=== PATIENT | male | born 1960 | race African-American/Black ===

== ENCOUNTER 2018-10-31 10:03 | Inpatient (IN) | payer OTHER ==
[2018-10-31 11:14] VITALS: BMI 25.7
--- NOTE | 2018-10-31 12:11 | HP ---
CIWA Score Nausea/Vomitin Muscle Tremors: 2 Anxiety: 3 Agitation: 3 Paroxysmal Sweats: No Perspiration Orientation: 0-Oriented Tacttile Disturbances: 1-Very Mild Itch/Numbness Auditory Disturbances: 0-None Visual Disturbances: 1-Very Mild Sensitivity Headache: 2-Mild CIWA-Ar Total Score: 14 - Admission Criteria OASAS Guidelines: Admission for Medically Managed Detox: Requires at least one of the followin. CIWA greater than 12 2. Seizures within the past 24 hours 3. Delirium tremens within the past 24 hours 4. Hallucinations within the past 24 hours 5. Acute intervention needed for co occurring medical disorder 6. Acute intervention needed for co occurring psychiatric disorder 7. Severe withdrawal that cannot be handled at a lower level of care (continued vomiting, continued diarrhea, abnormal vital signs) requiring intravenous medication and/or fluids 8. Admission ROS S - HPI Chief Complaint: i need help to stop drinking alcohol Allergies/Adverse Reactions: Allergies Allergy/AdvReac Type Severity Reaction Status Date / Time peanut [Peanut] Allergy Severe Difficulty Verified 10/31/18 10:55 Breathing No Known Drug Allergies Allergy Verified 10/31/18 13:22 NKDA Allergy Uncoded 10/31/18 10:55 History of Present Illness: This 57 years old male with alcohol dependence,seeking detox,last detox to 10/15/15 not completed denied seizure denied syncope nicotine dependence 2 cigarette/day low back pain,herniated disc anemia,bleeding requiring transfusion lap surgery for hiatus hernia 03/12 copd fx of right fibula 2005 plan for out patient program after detox Exam Limitations: No Limitations - Ebola screening Have you traveled outside of the country in the last 21 days: No (N) Have you had contact with anyone from an Ebola affected area: No Do you have a fever: No - Review of Systems Constitutional: Loss of Appetite, Malaise, Night Sweats, Changes in sleep, Weakness EENT: reports: Tearing, Nose Congestion Respiratory: reports: No Symptoms reported, Other (copd) Cardiac: reports: No Symptoms Reported GI: reports: Nausea, Poor Appetite, Abdominal cramping : reports: No Symptoms Reported Musculoskeletal: reports: Back Pain, Muscle Pain Integumentary: reports: Dryness Neuro: reports: Tremors Endocrine: reports: No Symptoms Reported Hematology: reports: No Symptoms Reported Psychiatric: reports: No Sypmtoms Reported, Judgement Intact, Mood/Affect Appropiate, Orientated x3 Other Systems: Reviewed and Negative Patient History - Patient Medical History Hx Anemia: No Hx Asthma: No Hx Chronic Obstructive Pulmonary Disease (COPD): Yes (on albuterol,symbicort, singulair) Hx Cancer: No Hx Cardiac Disorders: No Hx Congestive Heart Failure: No Hx Hypertension: No Hx Hypercholesterolemia: No Hx Pacemaker: No HX Cerebrovascular Accident: No Hx Seizures: No Hx Dementia: No Hx Diabetes: No Hx Gastrointestinal Disorders: No Hx Liver Disease: No Hx Genitourinary Disorders: No Hx Sexually Transmitted Disorders: No Hx Renal Disease (ESRD): No Hx Thyroid Disease: No Hx Human Immunodeficiency Virus (HIV): No (last 10/10) Hx Hepatitis C: No Hx Depression: No Hx Suicide Attempt: No Hx Bipolar Disorder: No Hx Schizophrenia: No Other Medical History: no suicidal,no homicidal - Patient Surgical History Past Surgical History: No Hx Neurologic Surgery: No Hx Cataract Extraction: No Hx Cardiac Surgery: No Hx Lung Surgery: No Hx Breast Surgery: No Hx Breast Biopsy: No Hx Abdominal Surgery: Yes (lap surgery for hiatus hernia in 03/12) Hx Appendectomy: No Hx Cholecystectomy: No Hx Genitourinary Surgery: No Hx Section: No Hx Orthopedic Surgery: No Anesthesia Reaction: No - PPD History Previous Implant?: Yes Documented Results: Negative w/o proof Date: 01/02/15 Results: 0 mm PPD to be Administered?: No - Smoking Cessation Smoking history: Former smoker Have you smoked in the past 12 months: Yes Aproximately how many cigarettes per day: 2 Hx Chewing Tobacco Use: No Initiated information on smoking cessation: Yes 'Breaking Loose' booklet given: 10/31/18 - Substance & Tx. History Hx Alcohol Use: Yes Hx Substance Use: No Substance Use Type: Alcohol Hx Substance Use Treatment: Yes ([facility] 10/13/15 to 10/15/15 not completed) - Substances abused Alcohol Substance route: Oral Frequency: Daily Amount used: 1 1/2 pint of bert Age of first use: 18 Date of last use: 10/31/18 Family Disease History - Family Disease History Family Disease History: Diabetes: Father, CA: Mother (UTERUS) Admission Physical Exam [facility]HS - Vital Signs Vital Signs: Vital Signs - 24 hr 10/31/18 10:54 Temperature 97.3 F L Pulse Rate 68 Respiratory 18 Rate Blood Pressure 134/84 - Physical General Appearance: Yes: Moderate Distress, Tremorous, Irritable, Sweating, Anxious HEENTM: Yes: Normal ENT Inspection, RENEE, Pharynx Normal Respiratory: Yes: Lungs Clear, Normal Breath Sounds, No Respiratory Distress Neck: Yes: Within Normal Limits, Supple, Trachea in good position Breast: Yes: Within Normal Limits Cardiology: Yes: Within Normal Limits, Regular Rhythm, Regular Rate, S1, S2 Abdominal: Yes: Within Normal Limits, Normal Bowel Sounds, Non Tender, Soft Genitourinary: Yes: Within Normal Limits Back: Yes: Within Normal Limits Musculoskeletal: Yes: Back pain, Muscle Pain Extremities: Yes: Within Normal Limits, Normal Range of Motion, Tremors Neurological: Yes: short story writer II-XII NML intact, Fully Oriented, Alert, Motor Strength 5/5 Integumentary: Yes: Dry Lymphatic: Yes: Within Normal Limits - Diagnostic (1) Alcohol dependence with uncomplicated withdrawal Current Visit: No Status: Acute (2) Nicotine dependence Current Visit: No Status: Acute (3) GERD (gastroesophageal reflux disease) Current Visit: No Status: Chronic Qualifiers: Esophagitis presence: without esophagitis Qualified Code(s): K21.9 - Gastro -esophageal reflux disease without esophagitis (4) COPD (chronic obstructive pulmonary disease) Current Visit: Yes Status: Acute (5) Anemia Current Visit: Yes Status: Acute Cleared for Admission S - Detox or Rehab [facility] Level of Care: Medically Managed (ativan regimen) Inpatient Rehab Admission - Rehab Decision to Admit Inpatient rehab admission?: No
[2018-10-31] MEDS ORDERED: hydrOXYzine PAMOATE 25 MG CAPSULE (FP) PO PRN (12:33)
[2018-10-31] MEDS ORDERED: ACETAMINOPHEN 325 MG TABLET (FP) PO PRN ×2 (12:33)
[2018-10-31] MEDS ORDERED: IBUPROFEN 400 MG TABLET (FP) PO PRN (12:33)
[2018-10-31] MEDS ORDERED: MELATONIN 5 MG TABLETS PO PRN (12:33)
[2018-10-31] MEDS ORDERED: MENTHOL/PHENOL 1 EACH UD MM PRN (12:33)
[2018-10-31] MEDS ORDERED: LORazepam 1 MG TABLET PO PRN (12:33)
[2018-10-31] MEDS ORDERED: MAGNESIUM HYDROX 2400MG/30ML ORAL SUSPENSION 30 ML CUP PO PRN (12:33)
[2018-10-31] MEDS ORDERED: MAGNESIUM CITRATE 300 ML BOTTLE PO PRN (12:33)
[2018-10-31] MEDS ORDERED: MAG HYDROX/AL HYDROX/SIMETH 30 ML UNIT-DOSE CUP PO PRN (12:33)
[2018-10-31] MEDS ORDERED: BISMUTH SUBSALICYLATE 262 MG/15 ML BTL PO PRN (12:33)
[2018-10-31] MEDS ORDERED: ALBUTEROL SO4 8 GM HFA INHALER IH PRN (12:38)
[2018-10-31] MEDS ORDERED: LORazepam 2 MG TABLET PO ONE (13:30)
[2018-10-31] MEDS: NAPROXEN 500 MG TABLET (FP) PO PRN ×2 (15:48→22:07)
[2018-10-31 16:56] LABS: HEMATOCRIT 38.4 % (35.4-49); HEMOGLOBIN 11.9 GM/dL (11.7-16.9); MCH 25.5 pg (25.7-33.7); MEAN CELL VOLUME 82.1 fl (80-96); MEAN PLT VOLUME 9.6 fl (7.5-11.1); PLATELET COUNT 305 K/MM3 (134-434); RBC 4.68 M/mm3 (4.00-5.60); RDW 15.6 % (11.9-15.9); WHITE BLOOD COUNT 8.3 K/mm3 (4.0-10.0)
[2018-10-31 17:06] LABS: ALBUMIN 3.7 g/dl (3.4-5.0); BILIRUBIN,TOTAL 0.4 mg/dL (0.2-1); BLOOD UREA NITROGEN 22.9 mg/dL (7-18); CALCIUM 8.9 mg/dL (8.5-10.1); POTASSIUM 4.1 mmol/L (3.5-5.1); TOT PROT 6.9 g/dl (6.4-8.2)
[2018-10-31] MEDS: LORazepam 2 MG TABLET PO SCH ×2 (17:57→22:05)
[2018-10-31] MEDS: VITAMINS A AND D TOPICAL OINTMENT 60 GM TUBE TP SCH ×2 (17:59→23:02)
[2018-10-31] MEDS ORDERED: diphenhydrAMINE HCL 25 MG CAPSULE (FP) PO ONE (21:20)
[2018-10-31] MEDS: BUDESONIDE/FORMETEROL FUMARATE 160/4.5 mcg INHALER IH SCH (22:05)
[2018-10-31] MEDS: MONTELUKAST NA 10 MG TABLET PO SCH (22:05)
[2018-10-31] MEDS: THIAMINE HCL 100 MG TABLET (FP) PO SCH (22:06)
[2018-10-31] MEDS: diphenhydrAMINE HCL 50 MG CAPSULE PO SCH (22:07)
[2018-11-01] MEDS: LORazepam 2 MG TABLET PO SCH ×4 (05:55→22:02)
[2018-11-01] MEDS: NAPROXEN 500 MG TABLET (FP) PO PRN ×3 (05:57→16:39)
[2018-11-01] MEDS: VITAMINS A AND D TOPICAL OINTMENT 60 GM TUBE TP SCH ×3 (07:20→18:35)
[2018-11-01] MEDS: GABAPENTIN 300 MG CAPSULE (FP) PO SCH (10:27)
[2018-11-01] MEDS: PRENATAL VITAMINS W/ FOLIC ACID TABLET (FP) PO SCH (10:27)
[2018-11-01] MEDS: BUDESONIDE/FORMETEROL FUMARATE 160/4.5 mcg INHALER IH SCH ×2 (10:28→22:04)
--- NOTE | 2018-11-01 10:35 | PN ---
[facility] CIWA - CIWA Score Nausea/Vomitin-No Nausea/No Vomiting Muscle Tremors: 3 Anxiety: 2 Agitation: 4-Moderately Restless Paroxysmal Sweats: 2 Orientation: 0-Oriented Tacttile Disturbances: 0-None Auditory Disturbances: 0-None Visual Disturbances: 0-None Headache: 0-None Present CIWA-Ar Total Score: 11 [facility] Progress Note (SOAP) Subjective: 57 years old male 1st patient [facility] admission since 2016 was admitted on 10/31/18 for alcohol withdrawal sx management doing well with ativan detox regimen tolerate food and fluid well no nausea no trouble chewing swallowing food speech clearly no dizziness Objective: 11/01/18 10:39 Vital Signs Temperature 96.2 F L 11/01/18 09:56 Pulse Rate 93 H 11/01/18 09:56 Respiratory Rate 18 11/01/18 09:56 Blood Pressure 128/81 11/01/18 09:56 O2 Sat by Pulse Oximetry (%) Laboratory Last Values WBC 8.3 K/mm3 (4.0-10.0) 10/31/18 12:00 RBC 4.68 M/mm3 (4.00-5.60) 10/31/18 12:00 Hgb 11.9 GM/dL (11.7-16.9) 10/31/18 12:00 Hct 38.4 % (35.4-49) 10/31/18 12:00 MCV 82.1 fl (80-96) 10/31/18 12:00 MCH 25.5 pg (25.7-33.7) L 10/31/18 12:00 MCHC 31.0 g/dl (32.0-35.9) L 10/31/18 12:00 RDW 15.6 % (11.9-15.9) 10/31/18 12:00 Plt Count 305 K/MM3 (134-434) D 10/31/18 12:00 MPV 9.6 fl (7.5-11.1) 10/31/18 12:00 Sodium 145 mmol/L (136-145) 10/31/18 12:00 Potassium 4.1 mmol/L (3.5-5.1) 10/31/18 12:00 Chloride 104 mmol/L (98-107) 10/31/18 12:00 Carbon Dioxide 31 mmol/L (21-32) 10/31/18 12:00 Anion Gap 10 MMOL/L (8-16) 10/31/18 12:00 BUN 22.9 mg/dL (7-18) H 10/31/18 12:00 Creatinine 1.0 mg/dL (0.55-1.3) 10/31/18 12:00 Est GFR (CKD-EPI)AfAm 96.40 10/31/18 12:00 Est GFR (CKD-EPI)NonAf 83.18 10/31/18 12:00 Random Glucose 100 mg/dL (74-106) 10/31/18 12:00 Calcium 8.9 mg/dL (8.5-10.1) 10/31/18 12:00 Total Bilirubin 0.4 mg/dL (0.2-1) 10/31/18 12:00 AST 28 U/L (15-37) 10/31/18 12:00 ALT 35 U/L (13-61) 10/31/18 12:00 Alkaline Phosphatase 92 U/L (45-117) 10/31/18 12:00 Total Protein 6.9 g/dl (6.4-8.2) 10/31/18 12:00 Albumin 3.7 g/dl (3.4-5.0) 10/31/18 12:00 RPR Titer Nonreactive (NONREACTIVE) 10/31/18 12:00 lab noted encourage oral fluid Assessment: 11/01/18 10:39 alcohol withdrawal sx Plan: continue ativan detox regimen
[2018-11-01] MEDS: METHOCARBAMOL 500 MG TABLET PO PRN (16:39)
[2018-11-01] MEDS ORDERED: diphenhydrAMINE HCL 25 MG CAPSULE (FP) PO ONE (21:56)
[2018-11-01] MEDS: THIAMINE HCL 100 MG TABLET (FP) PO SCH (22:02)
[2018-11-01] MEDS: diphenhydrAMINE HCL 50 MG CAPSULE PO SCH (22:03)
[2018-11-01] MEDS: MONTELUKAST NA 10 MG TABLET PO SCH (22:03)
[2018-11-02] MEDS: VITAMINS A AND D TOPICAL OINTMENT 60 GM TUBE TP SCH ×2 (02:36→07:19)
[2018-11-02 06:29] VITALS: BP 115/71; PULSE 89; TEMP 98.5
[2018-11-02] MEDS: LORazepam 1 MG TABLET PO SCH ×2 (07:19→10:51)
[2018-11-02] MEDS: GABAPENTIN 300 MG CAPSULE (FP) PO SCH (09:00)
[2018-11-02] MEDS: PRENATAL VITAMINS W/ FOLIC ACID TABLET (FP) PO SCH (09:00)
[2018-11-02] MEDS: NAPROXEN 500 MG TABLET (FP) PO PRN (09:01)
[2018-11-02] MEDS: METHOCARBAMOL 500 MG TABLET PO PRN (09:01)
[2018-11-02] MEDS: BUDESONIDE/FORMETEROL FUMARATE 160/4.5 mcg INHALER IH SCH (09:02)
--- NOTE | 2018-11-02 10:37 | DS ---
[facility] Detox Discharge Summary Admission Date: 10/31/18 Discharge Date: 11/02/18 - History Present History: Alcohol Dependence Additional Comments: 57 years old male multiple patient [facility], operated by [facility] admission since 2010 was admitted on 10/31/18 for alcohol withdrawal sx management did well with ativan detox regimen no complication through out the detox stay alert oriented x 3 cardiac S1S2 regular rate rhythm respiratory clear lung bilaterally on auscultation abdomen no nausea no vomiting soft no rebound tenderness Pertinent Past History: asthma copd patient prefers to go home today due to feeling better and has family support at home ambulating steady gait speech clearly and coherently - Physical Exam Results Vital Signs: Vital Signs Temperature 98.5 F 11/02/18 06:29 Pulse Rate 89 11/02/18 06:29 Respiratory Rate 18 11/02/18 06:29 Blood Pressure 115/71 11/02/18 06:29 O2 Sat by Pulse Oximetry (%) Pertinent Admission Physical Exam Findings: alcohol withdrawal sx Laboratory Last Values WBC 8.3 K/mm3 (4.0-10.0) 10/31/18 12:00 RBC 4.68 M/mm3 (4.00-5.60) 10/31/18 12:00 Hgb 11.9 GM/dL (11.7-16.9) 10/31/18 12:00 Hct 38.4 % (35.4-49) 10/31/18 12:00 MCV 82.1 fl (80-96) 10/31/18 12:00 MCH 25.5 pg (25.7-33.7) L 10/31/18 12:00 MCHC 31.0 g/dl (32.0-35.9) L 10/31/18 12:00 RDW 15.6 % (11.9-15.9) 10/31/18 12:00 Plt Count 305 K/MM3 (134-434) D 10/31/18 12:00 MPV 9.6 fl (7.5-11.1) 10/31/18 12:00 Sodium 145 mmol/L (136-145) 10/31/18 12:00 Potassium 4.1 mmol/L (3.5-5.1) 10/31/18 12:00 Chloride 104 mmol/L (98-107) 10/31/18 12:00 Carbon Dioxide 31 mmol/L (21-32) 10/31/18 12:00 Anion Gap 10 MMOL/L (8-16) 10/31/18 12:00 BUN 22.9 mg/dL (7-18) H 10/31/18 12:00 Creatinine 1.0 mg/dL (0.55-1.3) 10/31/18 12:00 Est GFR (CKD-EPI)AfAm 96.40 10/31/18 12:00 Est GFR (CKD-EPI)NonAf 83.18 10/31/18 12:00 Random Glucose 100 mg/dL (74-106) 10/31/18 12:00 Calcium 8.9 mg/dL (8.5-10.1) 10/31/18 12:00 Total Bilirubin 0.4 mg/dL (0.2-1) 10/31/18 12:00 AST 28 U/L (15-37) 10/31/18 12:00 ALT 35 U/L (13-61) 10/31/18 12:00 Alkaline Phosphatase 92 U/L (45-117) 10/31/18 12:00 Total Protein 6.9 g/dl (6.4-8.2) 10/31/18 12:00 Albumin 3.7 g/dl (3.4-5.0) 10/31/18 12:00 RPR Titer Nonreactive (NONREACTIVE) 10/31/18 12:00 lab noted increase oral fluid - Treatment Hospital Course: Detox Protocol Followed, Detoxed Safely, Responded well, Discharged Condition Good, Rehab Referral Accepted Patient has Accepted a Rehab Referral to: community support approach - Medication Discharge Medications: Ambulatory Orders Diphenhydramine [Benadryl Capsule -] 50 mg PO HS 10/31/18 Gabapentin 300 mg PO DAILY 10/31/18 Naproxen [Naprosyn -] 500 mg PO BID 10/31/18 Albuterol Sulfate Inhaler - [Ventolin HFA Inhaler -] 2 inh PO Q4H #1 cartridge 11/02/18 Budesonide/Formeterol Fumarate [SYMBICORT 160/4.5mcg -] 1 inh PO BID #1 inhaler 11/02/18 Montelukast Na [Singulair -] 10 mg PO HS #30 tablet 11/02/18 - Diagnosis (1) COPD (chronic obstructive pulmonary disease) Current Visit: Yes Status: Chronic Qualifiers: COPD type: emphysema Emphysema type: unspecified Qualified Code(s): J43.9 - Emphysema, unspecified (2) Alcohol dependence with uncomplicated withdrawal Current Visit: Yes Status: Acute (3) Nicotine dependence Current Visit: Yes Status: Acute Qualifiers: Nicotine product type: cigarettes Substance use status: in withdrawal Qualified Code(s): F17.213 - Nicotine dependence, cigarettes, with withdrawal (4) Asthma Current Visit: Yes Status: Chronic Qualifiers: Asthma severity: mild Asthma persistence: intermittent Asthma complication type: uncomplicated Qualified Code(s): J45.20 - Mild intermittent asthma, uncomplicated - AMA Did Patient Leave Against Medical Advice: No CIWA Score - CIWA Score Nausea/Vomitin-No Nausea/No Vomiting Muscle Tremors: 2 Anxiety: 1-Mildly Anxious Agitation: 2 Paroxysmal Sweats: 1-Minimal Palms Moist Orientation: 0-Oriented Tacttile Disturbances: 0-None Auditory Disturbances: 0-None Visual Disturbances: 0-None Headache: 0-None Present CIWA-Ar Total Score: 6
[2018-11-03] MEDS ORDERED: LORazepam 0.5 MG TABLET PO PRN
[2018-11-03] MEDS ORDERED: LORazepam 0.5 MG TABLET PO SCH (05:00)
[2018-11-04] MEDS ORDERED: LORazepam 0.5 MG TABLET PO ONE (05:00)
== END 2018-11-02 10:11 | disposition home or self-care (01) | DRG 775 ==
LOC: YASAS 10:03 → Y3N 12:57
PROVIDERS: ADMIT Surgery; ATTEND Surgery
PROC: HZ2ZZZZ Detoxification Services for Substance Abuse Treatment (ICD-10-PCS; principal; 2018-10-31)
DX: F10.230 Alcohol dependence with withdrawal, uncomplicated (principal); F17.213 Nicotine dependence, cigarettes, with withdrawal; J43.9 Emphysema, unspecified; J45.20 Mild intermittent asthma, uncomplicated; K21.9 Gastro-esophageal reflux disease without esophagitis; D64.9 Anemia, unspecified; Z91.010 Allergy to peanuts
CPT/HCPCS: 36415; 80053; 85027; 86480; 86593

== ENCOUNTER 2018-12-11 13:39 | Inpatient (IN) | payer OTHER ==
[2018-12-11 14:44] VITALS: BMI 26.5
--- NOTE | 2018-12-11 19:42 | HP ---
CIWA Score Nausea/Vomitin-No Nausea/No Vomiting Muscle Tremors: 1-None Visible, but [place] Anxiety: 4-Mod. Anxious/Guarded Agitation: 4-Moderately Restless Paroxysmal Sweats: 3 (Increased facial moisture) Orientation: 0-Oriented Tacttile Disturbances: 0-None Auditory Disturbances: 0-None Visual Disturbances: 0-None Headache: 0-None Present CIWA-Ar Total Score: 12 - Admission Criteria OASAS Guidelines: Admission for Medically Managed Detox: Requires at least one of the followin. CIWA greater than 12 2. Seizures within the past 24 hours 3. Delirium tremens within the past 24 hours 4. Hallucinations within the past 24 hours 5. Acute intervention needed for co occurring medical disorder 6. Acute intervention needed for co occurring psychiatric disorder 7. Severe withdrawal that cannot be handled at a lower level of care (continued vomiting, continued diarrhea, abnormal vital signs) requiring intravenous medication and/or fluids 8. Patient presents the following: CIWA greater than 12 Admission Criteria Met: Admission criteria met Admitting History and Physical - Smoking History Smoking history: Former smoker Have you smoked in the past 12 months: Yes Aproximately how many cigarettes per day: 2 - Alcohol/Substance Use Hx Alcohol Use: Yes Admission ROS S - HPI Chief Complaint: Here for alcohol detox. Allergies/Adverse Reactions: Allergies Allergy/AdvReac Type Severity Reaction Status Date / Time peanut [Peanut] Allergy Severe Difficulty Verified 10/31/18 10:55 Breathing No Known Drug Allergies Allergy Verified 10/31/18 13:22 NKDA Allergy Uncoded 10/31/18 10:55 History of Present Illness: Second admission to [facility] for this 57 yo who presents w/ alcohol withdrawal and seeking detox. Last admission 10/31-12/2018. States started drinking the same day of discharge. UTox: Neg. PRANAV: 0.0 Denies seizures, blackouts, overdoses. Alcohol use began at age 18. Currently drinking 1-1.5 liquor misha. Nicotine use began at age 30. States smoke 1-2 cig only when drinks. Cocaine use - stopped in 2015. States longest sobriety 2 years. TB Gold (QFT) 10/31/18: Neg PMHx: COPD+ Denies HTN; Back Pain r/t herniated disc; MHHx: Insomnia. Denies S/ SHx:Domiciled. Unemployed. (SSI) Exam Limitations: No Limitations - Ebola screening Have you traveled outside of the country in the last 21 days: No (N) Have you had contact with anyone from an Ebola affected area: No Have you been sick,other than usual withdrawal symptoms: No Do you have a fever: No - Review of Systems Constitutional: Chills, Diaphoresis, Changes in sleep (Difficulty fallin and staying asleep - states takes benadryl 50 mh) EENT: reports: Blurred Vision Respiratory: reports: No Symptoms reported Cardiac: reports: No Symptoms Reported GI: reports: Other (States difficulty eating an entire meal since abd surgery. States needs ensure) : reports: No Symptoms Reported Musculoskeletal: reports: Back Pain (Chronic achy low back pain. Pain = "10". States nothinh helps) Integumentary: reports: No Symptoms Reported Neuro: reports: No Symptoms reported Endocrine: reports: Increased Thirst Hematology: reports: Blood Clots (10 years ago) Psychiatric: reports: Orientated x3, Agitated, Anxious Patient History - Patient Medical History Hx Anemia: No Hx Asthma: No Hx Chronic Obstructive Pulmonary Disease (COPD): Yes (on albuterol,symbicort, singulair) Hx Cancer: No Hx Cardiac Disorders: No Hx Congestive Heart Failure: No Hx Hypertension: No Hx Hypercholesterolemia: No Hx Pacemaker: No HX Cerebrovascular Accident: No Hx Seizures: No Hx Dementia: No Hx Diabetes: No Hx Gastrointestinal Disorders: No Hx Liver Disease: No Hx Genitourinary Disorders: No Hx Sexually Transmitted Disorders: No Hx Renal Disease (ESRD): No Hx Thyroid Disease: No Hx Human Immunodeficiency Virus (HIV): No (last 10/10) Hx Hepatitis C: No Hx Depression: No Hx Suicide Attempt: No Hx Bipolar Disorder: No Hx Schizophrenia: No - Patient Surgical History Past Surgical History: No Hx Neurologic Surgery: No Hx Cataract Extraction: No Hx Cardiac Surgery: No Hx Lung Surgery: No Hx Breast Surgery: No Hx Breast Biopsy: No Hx Abdominal Surgery: Yes (lap surgery for hiatus hernia in 03/12) Hx Appendectomy: No Hx Cholecystectomy: No Hx Genitourinary Surgery: No Hx Section: No Hx Orthopedic Surgery: No Anesthesia Reaction: No - PPD History Previous Implant?: No (TB Gold (QFT) 10/31/18) Documented Results: Negative w/proof Implanted On Prior [facility] Admission?: Yes Date: 10/31/14 (TB Gold (QFT) ) Results: 0 mm PPD to be Administered?: No - Smoking Cessation Smoking history: Current some day smoker Have you smoked in the past 12 months: Yes Aproximately how many cigarettes per day: 2 Hx Chewing Tobacco Use: No Initiated information on smoking cessation: Yes 'Breaking Loose' booklet given: 12/11/18 - Substance & Tx. History Hx Alcohol Use: Yes Hx Substance Use: Yes Substance Use Type: Alcohol, Cocaine Hx Substance Use Treatment: Yes (detox) - Substances abused Alcohol Substance route: Oral Frequency: Daily Amount used: 1 1/2 pint of bert Age of first use: 18 Date of last use: 12/11/18 Admission Physical Exam [facility] - Vital Signs Vital Signs: Vital Signs - 24 hr 12/11/18 12/11/18 14:39 18:30 Temperature 97.3 F L 97.3 F L Pulse Rate 96 H 96 H Respiratory 19 19 Rate Blood Pressure 149/83 149/83 - Physical General Appearance: Yes: Nourished, Mild Distress, Irritable, Sweating ( Increased facial moisture), Anxious HEENTM: Yes: EOMI (Jerking movement of eyes upon upon lateral gaze), Hearing grossly Normal, Normocephalic, Normal Voice, RENEE, Pharynx Normal, Other ( Thinning nasal mucosa) Respiratory: Yes: Lungs Clear (Pulse Ox = 95 %), Normal Breath Sounds, No Respiratory Distress Neck: Yes: No masses,lesions,Nodules, Supple Breast: Yes: Breast Exam Deferred Cardiology: Yes: Regular Rhythm, Regular Rate, S1, S2 Abdominal: Yes: Non Tender, Flat, Soft, Increased Bowel Sounds Genitourinary: Yes: Within Normal Limits Back: Yes: Normal Inspection Musculoskeletal: Yes: full range of Motion, Gait Steady Extremities: Yes: Normal Capillary Refill (Peripheral pulses) Neurological: Yes: armhole baster jumpbasting II-XII NML intact (Jerking movement of eyes upon upon lateral gaze), Fully Oriented, Alert, Motor Strength 5/5, Normal Response Integumentary: Yes: Normal Color, Warm, Diaphoresis (Increased facial moisture) Lymphatic: Yes: Within Normal Limits - Diagnostic (1) Nicotine abuse Current Visit: Yes Status: Chronic (2) Alcohol dependence with uncomplicated withdrawal Current Visit: Yes Status: Acute (3) COPD (chronic obstructive pulmonary disease) Current Visit: Yes Status: Chronic Qualifiers: Emphysema type: unspecified Qualified Code(s): J43.9 - Emphysema, unspecified (4) GERD (gastroesophageal reflux disease) Current Visit: Yes Status: Chronic Qualifiers: Esophagitis presence: without esophagitis Qualified Code(s): K21.9 - Gastro -esophageal reflux disease without esophagitis (5) Unspecified nystagmus Current Visit: Yes Status: Acute (6) Chronic low back pain Current Visit: Yes Status: Chronic Qualifiers: Back pain laterality: unspecified Sciatica presence: without sciatica Qualified Code(s): M54.5 - Low back pain; G89.29 - Other chronic pain Cleared for Admission [facility] - Detox or Rehab [facility] Level of Care: Medically Managed Detox Regimen/Protocol: Valium (Requesting Ativan Detox) Claeared for Rehab Admission: No Breathalyzer - Breathalyzer Breathalyzer: 0 Urine Drug Screen - Test Device Lot number: [id number] Expiration date: 07/22/20 - Control Is test valid?: Yes - Results Drug screen NEGATIVE: Yes Urine drug screen results: THC-Marijuana, BZO-Benzodiazepines Inpatient Rehab Admission - Rehab Decision to Admit Inpatient rehab admission?: No
[2018-12-11] MEDS ORDERED: BISMUTH SUBSALICYLATE 524 MG/30 ML UD PO PRN (20:02)
[2018-12-11] MEDS ORDERED: LORazepam 2 MG TABLET PO ONE (20:02)
[2018-12-11] MEDS ORDERED: MELATONIN 5 MG TABLETS PO PRN ×2 (20:02→20:20)
[2018-12-11] MEDS ORDERED: NICOTINE POLACRILEX 2 MG GUM BUC PRN (20:02)
[2018-12-11] MEDS ORDERED: ACETAMINOPHEN 325 MG TABLET (FP) PO PRN (20:02)
[2018-12-11] MEDS ORDERED: MAG HYDROX/AL HYDROX/SIMETH 30 ML UNIT-DOSE CUP PO PRN (20:02)
[2018-12-11] MEDS ORDERED: MENTHOL/PHENOL 1 EACH UD MM PRN (20:02)
[2018-12-11] MEDS ORDERED: MAGNESIUM HYDROX 2400MG/30ML ORAL SUSPENSION 30 ML CUP PO PRN (20:02)
[2018-12-11] MEDS ORDERED: MAGNESIUM CITRATE 300 ML BOTTLE PO PRN (20:02)
[2018-12-11] MEDS ORDERED: ALBUTEROL SO4 8 GM HFA INHALER IH PRN (20:04)
[2018-12-11] MEDS: LORazepam 2 MG TABLET PO SCH (22:17)
[2018-12-11] MEDS: MONTELUKAST NA 10 MG TABLET PO SCH (22:18)
[2018-12-11] MEDS: THIAMINE HCL 100 MG TABLET (FP) PO SCH (22:18)
[2018-12-11] MEDS: VITAMINS A AND D TOPICAL OINTMENT 60 GM TUBE TP SCH (23:27)
[2018-12-11] MEDS: BUDESONIDE/FORMETEROL FUMARATE 160/4.5 mcg INHALER IH SCH (23:28)
[2018-12-12] MEDS: LORazepam 2 MG TABLET PO SCH ×4 (05:16→22:18)
[2018-12-12] MEDS: NAPROXEN 500 MG TABLET (FP) PO PRN (05:19)
[2018-12-12] MEDS: ACETAMINOPHEN 325 MG TABLET (FP) PO PRN ×2 (07:04→13:43)
[2018-12-12] MEDS: METHOCARBAMOL 500 MG TABLET PO PRN (07:04)
[2018-12-12] MEDS: LORazepam 1 MG TABLET PO PRN ×2 (08:36→13:43)
[2018-12-12] MEDS ORDERED: hydrOXYzine PAMOATE 25 MG CAPSULE (FP) PO PRN (09:34)
[2018-12-12] MEDS: VITAMINS A AND D TOPICAL OINTMENT 60 GM TUBE TP SCH ×2 (09:36→22:19)
[2018-12-12] MEDS: PRENATAL VITAMINS W/ FOLIC ACID TABLET (FP) PO SCH (09:36)
[2018-12-12] MEDS: BUDESONIDE/FORMETEROL FUMARATE 160/4.5 mcg INHALER IH SCH ×2 (09:36→22:19)
--- NOTE | 2018-12-12 09:38 | PN ---
S CIWA - CIWA Score Nausea/Vomitin-Mild Nausea/No Vomiting Muscle Tremors: 3 Anxiety: 3 Agitation: 2 Paroxysmal Sweats: 2 Orientation: 1-Uncertain about Date Tacttile Disturbances: 1-Very Mild Itch/Numbness Auditory Disturbances: 0-None Visual Disturbances: 0-None Headache: 1-Very Mild CIWA-Ar Total Score: 14 S Progress Note (SOAP) Subjective: 57 years old male admitted on 12/11/18 for alcohol withdrawal sx management report taking benadryl and gabapentin at home patient agrees to take vistaril instead of benadryl typewriter ribbon winder call [phone] verified gabapentin 300mg po daily monthly by different provider, last filled 11/23/18 continue gabapentin 300 mg po od as supportive therapy for alcohol withdrawal Objective: 12/12/18 09:43 Vital Signs Temperature 97.1 F L 12/12/18 09:11 Pulse Rate 79 12/12/18 09:11 Respiratory Rate 18 12/12/18 09:11 Blood Pressure 110/67 12/12/18 09:11 O2 Sat by Pulse Oximetry (%) 12/12/18 09:44 lab pending Assessment: 12/12/18 09:44 alcohol withdrawal sx Plan: continue ativan detox regimen
[2018-12-12 09:59] LABS: BILIRUBIN,TOTAL 0.4 mg/dL (0.2-1); BLOOD UREA NITROGEN 22.9 mg/dL (7-18); HEMATOCRIT 32.7 % (35.4-49); HEMOGLOBIN 10.4 GM/dL (11.7-16.9); MCH 25.2 pg (25.7-33.7); MCHC 31.8 g/dl (32.0-35.9); MEAN CELL VOLUME 79.4 fl (80-96); PLATELET COUNT 201 K/MM3 (134-434); POTASSIUM 3.8 mmol/L (3.5-5.1); RBC 4.12 M/mm3 (4.00-5.60); RDW 17.2 % (11.9-15.9); TOT PROT 5.6 g/dl (6.4-8.2); WHITE BLOOD COUNT 4.3 K/mm3 (4.0-10.0)
[2018-12-12] MEDS: GABAPENTIN 300 MG CAPSULE (FP) PO SCH (10:27)
--- NOTE | 2018-12-12 13:59 | CONSULT ---
[facility] Psychiatric Consult - Data Date of interview: 12/12/18 Admission source: [facility] Identifying data: One of multiple admissions to [facility] for this 57 y/o AA male self-referred for detoxification treatment. JI issues : alcohol, cocaine, nicotine. Patient is single, a father of three, domiciled, unemployed and supported on undisclosed means. Substance Abuse History: Discussed with patient. Details in current [facility] report as follows : Smoking history: Current some day smoker. Have you smoked in the past 12 months: Yes. Aproximately how many cigarettes per day: 2. Hx Chewing Tobacco Use: No. Initiated information on smoking cessation: Yes. 'Breaking Loose' booklet given: 12/11/18. - Substance & Tx. History. Hx Alcohol Use: Yes. Hx Substance Use: Yes. Substance Use Type: Alcohol, Cocaine. Hx Substance Use Treatment: Yes (detox). - Substances abused. Alcohol. Substance route: Oral. Frequency: Daily. Amount used: 1 1/2 pint of bert. Age of first use: 18. Date of last use: 12/11/18 Medical History: Reamarkable for bronchial asthma, GERD, chronic lumbar pain ( disc disease) and a history of pulmonary embolism (2009). Psychiatric History: Patient denies history of psychiatric hospitalizations. He reports seeing a " therapist " at an outpatient program in the [place] to address issues of anxiety " from my 10 years in senior care." On zolpidem prescribed by primary care physician (chronic insomnia). Mr Albarado denies history of suicide attempts. Physical/Sexual Abuse/Trauma History: Traumatized by 10 years of incarceration ( drug charges). Additional Comment: Urine drug screen results: THC-Marijuana, BZO- Benzodiazepines. Noted. Mental Status Exam - Mental Status Exam Alert and Oriented to: Time, Place, Person Cognitive Function: Good Patient Appearance: Well Groomed (muscular built; wearing earrings) Mood: Hopeful, Euthymic Affect: Appropriate, Normal Range Patient Behavior: Cooperative Speech Pattern: Clear, Appropriate Voice Loudness: Normal Thought Process: Intact, Goal Oriented Thought Disorder: Not Present Hallucinations: Denies Suicidal Ideation: Denies Homicidal Ideation: Denies Insight/Judgement: Poor Sleep: Poorly, Difficulty falling asleep Appetite: Good Muscle strength/Tone: Normal Gait/Station: Normal Psychiatric Findings - Problem List ([place] 1, 2,3) (1) Alcohol dependence with uncomplicated withdrawal Current Visit: Yes Status: Acute (2) Nicotine dependence Current Visit: Yes Status: Chronic Qualifiers: Nicotine product type: cigarettes Substance use status: in withdrawal Qualified Code(s): F17.213 - Nicotine dependence, cigarettes, with withdrawal (3) Insomnia Current Visit: Yes Status: Chronic Qualifiers: Insomnia type: alcohol-induced Qualified Code(s): F10.982 - Alcohol use, unspecified with alcohol-induced sleep disorder - Initial Treatment Plan Initial Treatment Plan: Psychoeducation. Sleep hygiene. Detoxification. MAT services offered to patient. Declines. AA meetings. Insomnia is addressed with benadryl 50 mg po hs prn (patient's request). Informed consent (verbal) : secured. Observation.
--- NOTE | 2018-12-12 15:58 | EKG ---
Test Reason : Blood Pressure : / mmHG Vent. Rate : 083 BPM Atrial Rate : 083 BPM P-R Int : 132 ms QRS Dur : 076 ms QT Int : 370 ms P-R-T Axes : 061 013 020 degrees QTc Int : 434 ms NORMAL SINUS RHYTHM NORMAL ECG NO PREVIOUS ECGS AVAILABLE Confirmed by SHADI LIZAMA MD ([id number]) on 12/12/2018 3:58:38 PM Referred By: Confirmed By:SHADI LIZAMA MD
[2018-12-12] MEDS ORDERED: diphenhydrAMINE HCL 25 MG CAPSULE (FP) PO ONE (21:35)
[2018-12-12] MEDS: MONTELUKAST NA 10 MG TABLET PO SCH (22:18)
[2018-12-12] MEDS: THIAMINE HCL 100 MG TABLET (FP) PO SCH (22:18)
[2018-12-12] MEDS: diphenhydrAMINE HCL 50 MG CAPSULE PO PRN (22:19)
[2018-12-13] MEDS: LORazepam 1 MG TABLET PO SCH ×4 (06:14→22:17)
[2018-12-13] MEDS: NAPROXEN 500 MG TABLET (FP) PO PRN ×2 (06:33→17:42)
[2018-12-13] MEDS: BUDESONIDE/FORMETEROL FUMARATE 160/4.5 mcg INHALER IH SCH ×2 (10:27→22:17)
[2018-12-13] MEDS: PRENATAL VITAMINS W/ FOLIC ACID TABLET (FP) PO SCH (10:27)
[2018-12-13] MEDS: GABAPENTIN 300 MG CAPSULE (FP) PO SCH (10:27)
[2018-12-13] MEDS: VITAMINS A AND D TOPICAL OINTMENT 60 GM TUBE TP SCH ×2 (11:31→22:20)
--- NOTE | 2018-12-13 12:59 | PN ---
S CIWA - CIWA Score Nausea/Vomitin Muscle Tremors: 2 Anxiety: 2 Agitation: 2 Paroxysmal Sweats: No Perspiration Orientation: 0-Oriented Tacttile Disturbances: 1-Very Mild Itch/Numbness Auditory Disturbances: 0-None Visual Disturbances: 1-Very Mild Sensitivity Headache: 1-Very Mild CIWA-Ar Total Score: 11 S Progress Note (SOAP) Subjective: alert,irritable,anxious,interrupted sleep,pain in the body Objective: 12/13/18 12:57 Vital Signs Temperature 97.9 F 12/13/18 09:09 Pulse Rate 92 H 12/13/18 09:09 Respiratory Rate 18 12/13/18 09:09 Blood Pressure 109/67 12/13/18 09:09 O2 Sat by Pulse Oximetry (%) Laboratory Last Values WBC 4.3 K/mm3 (4.0-10.0) 12/12/18 08:00 RBC 4.12 M/mm3 (4.00-5.60) 12/12/18 08:00 Hgb 10.4 GM/dL (11.7-16.9) L 12/12/18 08:00 Hct 32.7 % (35.4-49) L 12/12/18 08:00 MCV 79.4 fl (80-96) L 12/12/18 08:00 MCH 25.2 pg (25.7-33.7) L 12/12/18 08:00 MCHC 31.8 g/dl (32.0-35.9) L 12/12/18 08:00 RDW 17.2 % (11.9-15.9) H 12/12/18 08:00 Plt Count 201 K/MM3 (134-434) D 12/12/18 08:00 MPV 9.0 fl (7.5-11.1) 12/12/18 08:00 Sodium 142 mmol/L (136-145) 12/12/18 08:00 Potassium 3.8 mmol/L (3.5-5.1) 12/12/18 08:00 Chloride 108 mmol/L (98-107) H 12/12/18 08:00 Carbon Dioxide 28 mmol/L (21-32) 12/12/18 08:00 Anion Gap 6 MMOL/L (8-16) L 12/12/18 08:00 BUN 22.9 mg/dL (7-18) H 12/12/18 08:00 Creatinine 1.0 mg/dL (0.55-1.3) 12/12/18 08:00 Est GFR (CKD-EPI)AfAm 96.40 12/12/18 08:00 Est GFR (CKD-EPI)NonAf 83.18 12/12/18 08:00 Random Glucose 77 mg/dL (74-106) 12/12/18 08:00 Calcium 8.0 mg/dL (8.5-10.1) L 12/12/18 08:00 Total Bilirubin 0.4 mg/dL (0.2-1) 12/12/18 08:00 AST 19 U/L (15-37) 12/12/18 08:00 ALT 27 U/L (13-61) 12/12/18 08:00 Alkaline Phosphatase 72 U/L (45-117) 12/12/18 08:00 Total Protein 5.6 g/dl (6.4-8.2) L 12/12/18 08:00 Albumin 3.0 g/dl (3.4-5.0) L 12/12/18 08:00 RPR Titer Nonreactive (NONREACTIVE) 12/12/18 08:00 Assessment: 12/13/18 12:58 withdrawal symptom Plan: continue detox ativan regimen
[2018-12-13] MEDS: ACETAMINOPHEN 325 MG TABLET (FP) PO PRN (14:25)
[2018-12-13] MEDS: METHOCARBAMOL 500 MG TABLET PO PRN (14:26)
[2018-12-13] MEDS: MONTELUKAST NA 10 MG TABLET PO SCH (22:17)
[2018-12-13] MEDS: THIAMINE HCL 100 MG TABLET (FP) PO SCH (22:17)
[2018-12-13] MEDS ORDERED: diphenhydrAMINE HCL 25 MG CAPSULE (FP) PO ONE (22:19)
[2018-12-13] MEDS: diphenhydrAMINE HCL 50 MG CAPSULE PO PRN (22:20)
[2018-12-14] MEDS ORDERED: LORazepam 0.5 MG TABLET PO PRN
[2018-12-14] MEDS ORDERED: LORazepam 0.5 MG TABLET PO SCH (05:00)
[2018-12-14] MEDS: NAPROXEN 500 MG TABLET (FP) PO PRN (05:53)
[2018-12-14 09:23] VITALS: BP 114/68; PULSE 81; TEMP 97.4
[2018-12-14] MEDS: PRENATAL VITAMINS W/ FOLIC ACID TABLET (FP) PO SCH (09:40)
[2018-12-14] MEDS: GABAPENTIN 300 MG CAPSULE (FP) PO SCH (09:40)
[2018-12-14] MEDS: BUDESONIDE/FORMETEROL FUMARATE 160/4.5 mcg INHALER IH SCH (09:40)
[2018-12-14] MEDS: ACETAMINOPHEN 325 MG TABLET (FP) PO PRN (09:42)
--- NOTE | 2018-12-14 13:06 | DS ---
[facility] Detox Discharge Summary Admission Date: 12/11/18 Discharge Date: 12/14/18 - History Present History: Alcohol Dependence Additional Comments: 57 years old male admitted on 12/11/18 for alcohol withdrawal sx management did well with ativan detox regimen no complication through out the detox stay alert oriented x 3 cardiac s1S2 rate regular rhythm respiratory clear lung bilaterally on auscultation extremities full range of motion - Physical Exam Results Vital Signs: Vital Signs Temperature 97.4 F L 12/14/18 09:22 Pulse Rate 81 12/14/18 09:22 Respiratory Rate 18 12/14/18 09:22 Blood Pressure 114/68 12/14/18 09:22 O2 Sat by Pulse Oximetry (%) Pertinent Admission Physical Exam Findings: alcohol withdrawal sx Laboratory Last Values WBC 4.3 K/mm3 (4.0-10.0) 12/12/18 08:00 RBC 4.12 M/mm3 (4.00-5.60) 12/12/18 08:00 Hgb 10.4 GM/dL (11.7-16.9) L 12/12/18 08:00 Hct 32.7 % (35.4-49) L 12/12/18 08:00 MCV 79.4 fl (80-96) L 12/12/18 08:00 MCH 25.2 pg (25.7-33.7) L 12/12/18 08:00 MCHC 31.8 g/dl (32.0-35.9) L 12/12/18 08:00 RDW 17.2 % (11.9-15.9) H 12/12/18 08:00 Plt Count 201 K/MM3 (134-434) D 12/12/18 08:00 MPV 9.0 fl (7.5-11.1) 12/12/18 08:00 Sodium 142 mmol/L (136-145) 12/12/18 08:00 Potassium 3.8 mmol/L (3.5-5.1) 12/12/18 08:00 Chloride 108 mmol/L (98-107) H 12/12/18 08:00 Carbon Dioxide 28 mmol/L (21-32) 12/12/18 08:00 Anion Gap 6 MMOL/L (8-16) L 12/12/18 08:00 BUN 22.9 mg/dL (7-18) H 12/12/18 08:00 Creatinine 1.0 mg/dL (0.55-1.3) 12/12/18 08:00 Est GFR (CKD-EPI)AfAm 96.40 12/12/18 08:00 Est GFR (CKD-EPI)NonAf 83.18 12/12/18 08:00 Random Glucose 77 mg/dL (74-106) 12/12/18 08:00 Calcium 8.0 mg/dL (8.5-10.1) L 12/12/18 08:00 Total Bilirubin 0.4 mg/dL (0.2-1) 12/12/18 08:00 AST 19 U/L (15-37) 12/12/18 08:00 ALT 27 U/L (13-61) 12/12/18 08:00 Alkaline Phosphatase 72 U/L (45-117) 12/12/18 08:00 Total Protein 5.6 g/dl (6.4-8.2) L 12/12/18 08:00 Albumin 3.0 g/dl (3.4-5.0) L 12/12/18 08:00 RPR Titer Nonreactive (NONREACTIVE) 12/12/18 08:00 lab noted - Treatment Hospital Course: Detox Protocol Followed, Detoxed Safely, Responded well, Discharged Condition Good, Rehab Referral Accepted Patient has Accepted a Rehab Referral to: community support approach - Medication Discharge Medications: Ambulatory Orders Diphenhydramine [Benadryl Capsule -] 50 mg PO HS 10/31/18 Gabapentin 300 mg PO DAILY 10/31/18 Naproxen [Naprosyn -] 500 mg PO BID 10/31/18 Montelukast Na [Singulair -] 10 mg PO HS 12/11/18 Gabapentin 300 mg PO DAILY 12/12/18 Albuterol Sulfate Inhaler - [Ventolin HFA Inhaler -] 2 inh PO Q4H #1 cartridge 12/14/18 Budesonide/Formeterol Fumarate [SYMBICORT 160/4.5mcg -] 1 inh PO BID #1 inhaler 12/14/18 - Diagnosis (1) Alcohol dependence with uncomplicated withdrawal Status: Acute (2) Asthma Status: Chronic Qualifiers: Asthma severity: mild Asthma persistence: intermittent Asthma complication type: with status asthmaticus Qualified Code(s): J45.22 - Mild intermittent asthma with status asthmaticus (3) COPD (chronic obstructive pulmonary disease) Status: Chronic Qualifiers: COPD type: emphysema Emphysema type: unspecified Qualified Code(s): J43.9 - Emphysema, unspecified (4) GERD (gastroesophageal reflux disease) Status: Chronic Qualifiers: Esophagitis presence: without esophagitis Qualified Code(s): K21.9 - Gastro -esophageal reflux disease without esophagitis (5) Nicotine dependence Status: Acute Qualifiers: Nicotine product type: cigarettes Substance use status: in withdrawal Qualified Code(s): F17.213 - Nicotine dependence, cigarettes, with withdrawal - AMA Did Patient Leave Against Medical Advice: No CIWA Score - CIWA Score Nausea/Vomitin-Mild Nausea/No Vomiting Muscle Tremors: 1-None Visible, but [place] Anxiety: 1-Mildly Anxious Agitation: 1-Slight > Activity Paroxysmal Sweats: 1-Minimal Palms Moist Orientation: 0-Oriented Tacttile Disturbances: 0-None Auditory Disturbances: 0-None Visual Disturbances: 0-None Headache: 1-Very Mild CIWA-Ar Total Score: 6
[2018-12-15] MEDS ORDERED: LORazepam 0.5 MG TABLET PO ONE (05:00)
== END 2018-12-14 10:54 | disposition home or self-care (01) | DRG 775 ==
LOC: YASAS 13:39 → Y3N 20:53
PROVIDERS: ADMIT Allergy & Immunology; ATTEND Allergy & Immunology
PROC: HZ2ZZZZ Detoxification Services for Substance Abuse Treatment (ICD-10-PCS; principal; 2018-12-11)
DX: F10.230 Alcohol dependence with withdrawal, uncomplicated (principal); F10.282 Alcohol dependence with alcohol-induced sleep disorder; F17.213 Nicotine dependence, cigarettes, with withdrawal; J43.9 Emphysema, unspecified; J45.22 Mild intermittent asthma with status asthmaticus; K21.9 Gastro-esophageal reflux disease without esophagitis; H55.00 Unspecified nystagmus; M54.5 Low back pain; G89.29 Other chronic pain; Z86.711 Personal history of pulmonary embolism; Z91.010 Allergy to peanuts
CPT/HCPCS: 36415; 80053; 85027; 86593; 93005; 93010

== ENCOUNTER 2019-05-12 18:08 | Inpatient (IN) | payer OTHER ==
--- NOTE | 2019-05-12 20:35 | BHS.RME ---
Substance Use & Tx History - Substance Use History Alcohol Substance amount: 1 pint Frequency of use: Daily (Started drinking about 2 months ago but daily x 3 past weeks) Substance route: Oral - Last Treatment Date of last treatment: 12/14/18 Treatment type: Substance Use Disorder (JI) Where was last treatment: Detox (Did not complete) Physical/Psych/Mental Status - Behavior General Behavior: Increased activity (restlessness, agitation) - Cooperativeness Cooperativeness: Cooperative - Thinking Thought Processes: Goal Directed (To control health issues) - Physical Health Problems Is patient presently having any pain?: Yes (chronic back pain) Does patient presently have any injuries (include location): No Does patient currently have a fever: No CIWA Nausea/Vomitin-No Nausea/No Vomiting Muscle Tremors: None Anxiety: 3 Agitation: 3 Paroxysmal Sweats: 1-Minimal Palms Moist Orientation: 0-Oriented Tacttile Disturbances: 0-None Auditory Disturbances: 0-None Visual Disturbances: 0-None Headache: 0-None Present CIWA-Ar Total Score: 7
[2019-05-12 22:35] VITALS: BMI 23.8
--- NOTE | 2019-05-13 01:29 | HP ---
CIWA Score Nausea/Vomitin-No Nausea/No Vomiting Muscle Tremors: None Anxiety: 3 Agitation: 3 Paroxysmal Sweats: 3 Orientation: 0-Oriented Tacttile Disturbances: 0-None Auditory Disturbances: 0-None Visual Disturbances: 0-None Headache: 4-Moderately Severe CIWA-Ar Total Score: 13 - Admission Criteria OASAS Guidelines: Admission for Medically Managed Detox: Requires at least one of the followin. CIWA greater than 12 2. Seizures within the past 24 hours 3. Delirium tremens within the past 24 hours 4. Hallucinations within the past 24 hours 5. Acute intervention needed for co occurring medical disorder 6. Acute intervention needed for co occurring psychiatric disorder 7. Severe withdrawal that cannot be handled at a lower level of care (continued vomiting, continued diarrhea, abnormal vital signs) requiring intravenous medication and/or fluids 8. Admitting History and Physical - Smoking History Smoking history: Current some day smoker Have you smoked in the past 12 months: Yes Aproximately how many cigarettes per day: 15 - Alcohol/Substance Use Hx Alcohol Use: Yes Admission ROS [facility] Chief Complaint: Alcohol withdrawal symptoms Allergies/Adverse Reactions: Allergies Allergy/AdvReac Type Severity Reaction Status Date / Time peanut [Peanut] Allergy Severe Difficulty Verified 05/12/19 22:18 Breathing No Known Drug Allergies Allergy Intermediate Vomiting Verified 05/12/19 22:18 chlordiazepoxide Allergy Verified 05/12/19 22:18 [From Librium] NKDA Allergy Uncoded 10/31/18 10:55 History of Present Illness: 58 years old male with a long history of alcohol dependence is seeking admission to detox. Patient has been admitted multiple times to [facility] and reports 2 years of sobriety. He has medical history of asthma, sciatica, GERD and psych. history of depression, anxiety and PTSD. 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 Denies blackouts and alcohol related seizures. Exam Limitations: No Limitations - Ebola screening Have you traveled outside of the country in the last 21 days: No Have you had contact with anyone from an Ebola affected area: No Do you have a fever: No - Review of Systems Constitutional: Chills, Malaise EENT: reports: No Symptoms Reported Respiratory: reports: No Symptoms reported Cardiac: reports: No Symptoms Reported GI: reports: Diarrhea (x 2), Nausea, Poor Fluid Intake, Abdominal cramping : reports: No Symptoms Reported Musculoskeletal: reports: Back Pain, Muscle Pain Integumentary: reports: Dryness, Flushing Neuro: reports: Headache, Tremors Endocrine: reports: No Symptoms Reported Hematology: reports: No Symptoms Reported Psychiatric: reports: Mood/Affect Appropiate, Orientated x3, Anxious Other Systems: Reviewed and Negative Patient History - Patient Medical History Hx Anemia: No Hx Asthma: Yes (Albuterol) Hx Chronic Obstructive Pulmonary Disease (COPD): No Hx Cancer: No Hx Cardiac Disorders: No Hx Congestive Heart Failure: No Hx Hypertension: No Hx Hypercholesterolemia: No Hx Pacemaker: No HX Cerebrovascular Accident: No Hx Seizures: No Hx Dementia: No Hx Diabetes: No Hx Gastrointestinal Disorders: Yes (GERD) Hx Liver Disease: No Hx Genitourinary Disorders: No Hx Sexually Transmitted Disorders: No Hx Renal Disease (ESRD): No Hx Thyroid Disease: No Hx Human Immunodeficiency Virus (HIV): No (last 10/10) Hx Hepatitis C: No Hx Depression: Yes Hx Suicide Attempt: No Hx Bipolar Disorder: No Hx Schizophrenia: No Other Medical History: Sciatica - Patient Surgical History Past Surgical History: No Hx Neurologic Surgery: No Hx Cataract Extraction: No Hx Cardiac Surgery: No Hx Lung Surgery: No Hx Breast Surgery: No Hx Breast Biopsy: No Hx Abdominal Surgery: Yes (lap surgery for hiatus hernia in 03/12) Hx Appendectomy: No Hx Cholecystectomy: No Hx Genitourinary Surgery: No Hx Section: No Hx Orthopedic Surgery: No Anesthesia Reaction: No - PPD History Previous Implant?: Yes Documented Results: Negative w/proof Implanted On Prior [facility] Admission?: Yes Date: 10/31/14 Results: 0 mm PPD to be Administered?: Yes - Reproductive History Patient is a Female of Child Bearing Age (11 -55 yrs old): No (male) Patient : No - Smoking Cessation Smoking history: Current every day smoker Have you smoked in the past 12 months: Yes Aproximately how many cigarettes per day: 15 Hx Chewing Tobacco Use: No Initiated information on smoking cessation: Yes 'Breaking Loose' booklet given: 05/13/19 - Substance & Tx. History Hx Alcohol Use: Yes Hx Substance Use: No Substance Use Type: Alcohol Hx Substance Use Treatment: Yes ([facility]) - Substances abused Alcohol Substance route: Oral Frequency: Daily Amount used: 1pt of Cognac Age of first use: 18 Date of last use: 05/12/19 Admission Physical Exam [facility] - Vital Signs Vital Signs: Vital Signs - 24 hr 05/12/19 22:17 Temperature 99.1 F Pulse Rate 108 H Respiratory 18 Rate Blood Pressure 123/76 - Physical General Appearance: Yes: Moderate Distress, Tremorous, Irritable, Sweating HEENTM: Yes: Within Normal Limits, Hearing grossly Normal Respiratory: Yes: Lungs Clear, Normal Breath Sounds, No Respiratory Distress Neck: Yes: Within Normal Limits Breast: Yes: Breast Exam Deferred Cardiology: Yes: Tachycardia Abdominal: Yes: Normal Bowel Sounds Genitourinary: Yes: Within Normal Limits Back: Yes: Normal Inspection Musculoskeletal: Yes: Back pain, Muscle Pain Extremities: Yes: Tremors Neurological: Yes: Within Normal Limits Integumentary: Yes: Warm Lymphatic: Yes: Within Normal Limits - Diagnostic (1) Alcohol dependence with uncomplicated withdrawal Current Visit: No Status: Acute (2) Nicotine dependence Current Visit: No Status: Acute Qualifiers: Nicotine product type: cigarettes Substance use status: in withdrawal Qualified Code(s): F17.213 - Nicotine dependence, cigarettes, with withdrawal (3) Asthma Current Visit: No Status: Chronic Qualifiers: Asthma severity: mild Asthma persistence: intermittent Asthma complication type: with status asthmaticus Qualified Code(s): J45.22 - Mild intermittent asthma with status asthmaticus (4) Chronic low back pain Current Visit: No Status: Chronic Qualifiers: Back pain laterality: unspecified Sciatica presence: without sciatica Qualified Code(s): M54.5 - Low back pain; G89.29 - Other chronic pain (5) GERD (gastroesophageal reflux disease) Current Visit: No Status: Chronic Qualifiers: Esophagitis presence: without esophagitis Qualified Code(s): K21.9 - Gastro-esophageal reflux disease without esophagitis Cleared for Admission S - Detox or Rehab [facility] Level of Care: Medically Managed Detox Regimen/Protocol: Valium Claeared for Rehab Admission: No Breathalyzer - Breathalyzer Breathalyzer: 0.009 Urine Drug Screen - Test Device Lot number: [id number] Expiration date: 10/22/20 - Control Is test valid?: Yes - Results Drug screen NEGATIVE: Yes Urine drug screen results: THC-Marijuana, BZO-Benzodiazepines Inpatient Rehab Admission - Rehab Decision to Admit Inpatient rehab admission?: No
[2019-05-13] MEDS ORDERED: NICOTINE POLACRILEX 2 MG GUM BUC PRN (01:35)
[2019-05-13] MEDS ORDERED: ONDANSETRON *ODT* 4 MG TABLET SL ONE (01:35)
[2019-05-13] MEDS ORDERED: MAGNESIUM CITRATE 300 ML BOTTLE PO PRN (01:35)
[2019-05-13] MEDS ORDERED: MENTHOL/PHENOL 1 EACH UD MM PRN (01:35)
[2019-05-13] MEDS ORDERED: BISMUTH SUBSALICYLATE 524 MG/30 ML UD PO PRN (01:35)
[2019-05-13] MEDS ORDERED: MAG HYDROX/AL HYDROX/SIMETH 30 ML UNIT-DOSE CUP PO PRN (01:35)
[2019-05-13] MEDS ORDERED: IBUPROFEN 400 MG TABLET (FP) PO PRN (01:35)
[2019-05-13] MEDS ORDERED: ACETAMINOPHEN 325 MG TABLET (FP) PO PRN (01:35)
[2019-05-13] MEDS ORDERED: MAGNESIUM HYDROX 2400MG/30ML ORAL SUSPENSION 30 ML CUP PO PRN (01:35)
[2019-05-13] MEDS: diazePAM 5 MG TABLET PO PRN ×2 (03:08→17:27)
[2019-05-13] MEDS: METHOCARBAMOL 500 MG TABLET PO PRN ×2 (03:09→10:28)
[2019-05-13] MEDS: diazePAM 5 MG TABLET PO SCH ×3 (06:58→22:16)
[2019-05-13] MEDS: ACETAMINOPHEN 325 MG TABLET (FP) PO PRN ×2 (07:04→17:25)
[2019-05-13] MEDS: NAPROXEN 500 MG TABLET PO SCH ×2 (10:27→22:16)
[2019-05-13] MEDS: PRENATAL VITAMINS W/ FOLIC ACID TABLET (FP) PO SCH (10:27)
[2019-05-13] MEDS: NICOTINE 21 MG/24 HOURS TOPICAL PATCH TD SCH (10:27)
[2019-05-13] MEDS: BUDESONIDE/FORMETEROL FUMARATE 160/4.5 mcg INHALER IH SCH ×2 (10:29→22:16)
--- NOTE | 2019-05-13 10:55 | CONSULT ---
[facility] Psychiatric Consult - Data Date of interview: 05/13/19 Admission source: [facility] Identifying data: Readmission to [address] [place] [address] for this 58 y/o AA male self-referred for detoxification treatment. JI issues : alcohol, nicotine. Patient is single, a father of three, domiciled, unemployed and supported on SSI benefits. Substance Abuse History: Discussed with the patient. JI profile as follows : Smoking history: Current every day smoker. Have you smoked in the past 12 months: Yes. Aproximately how many cigarettes per day: 15. Hx Chewing Tobacco Use: No. Initiated information on smoking cessation: Yes. 'Breaking Loose' booklet given: 05/13/19. - Substance & Tx. History. Hx Alcohol Use: Yes. Hx Substance Use: No. Substance Use Type: Alcohol. Hx Substance Use Treatment: Yes ([facility]). - Substances abused. Alcohol. Substance route: Oral. Frequency: Daily. Amount used: 1pt of Cognac. Age of first use: 18. Date of last use: 05/12/19 Medical History: Medical profile is remarkable for antecedent of lap surgery for hiatus hernia (2018), bronchial asthma, GERD, chronic lumbar pain (disc disease), arthritis and a history of pulmonary embolism (2009). Psychiatric History: Patient denies history of psychiatric hospitalizations (admits to brief stay at [facility], in 2002, for extended observation after a drug overdose/released after 72 hours). Mr Albarado has been seeing a psychiatrist (medication management : gabapentin 400 mg/tid + abilify 15 mg/day), for past three months, at the in [facility]. Patient denies history of suicide attempts. Physical/Sexual Abuse/Trauma History: Traumatized by 10 years of incarceration (drug charges). Additional Comment: Urine drug screen results: THC-Marijuana, BZO- Benzodiazepines. Noted. Mental Status Exam - Mental Status Exam Alert and Oriented to: Time, Place, Person Cognitive Function: Good Patient Appearance: Well Groomed Mood: Anxious, Hopeful Affect: Appropriate, Normal Range Patient Behavior: Fatigued, Appropriate, Cooperative Speech Pattern: Clear, Appropriate Voice Loudness: Normal Thought Process: Goal Oriented Thought Disorder: Not Present Hallucinations: Denies Suicidal Ideation: Denies Homicidal Ideation: Denies Insight/Judgement: Poor Sleep: Fair Appetite: Good Gait/Station: Normal Psychiatric Findings - Problem List ([place] 1, 2,3) (1) Alcohol dependence with uncomplicated withdrawal Current Visit: Yes Status: Acute (2) Nicotine dependence Current Visit: Yes Status: Chronic Qualifiers: Nicotine product type: cigarettes Substance use status: in withdrawal Qualified Code(s): F17.213 - Nicotine dependence, cigarettes, with withdrawal (3) Substance induced mood disorder Current Visit: Yes Status: Chronic (4) History of posttraumatic stress disorder (PTSD) Current Visit: Yes Status: Chronic (5) History of anxiety disorder Current Visit: Yes Status: Chronic (6) Insomnia Current Visit: Yes Status: Chronic Qualifiers: Insomnia type: alcohol-induced Qualified Code(s): F10.982 - Alcohol use, unspecified with alcohol-induced sleep disorder - Initial Treatment Plan Initial Treatment Plan: Psychoeducation. Sleep hygiene. Detoxification. Resumed at patient's request : abilify 10 mg po hs + gabapentin 200 mg po tid. Doses are reduced (caution against oversedation). Side effects/benefits discussed with the patient. Mr Albarado is in agreement with this plan of care. Gave consent (verbal) to MD. Parikh.
[2019-05-13] MEDS: GABAPENTIN 100 MG CAPSULE PO SCH ×2 (14:13→22:16)
[2019-05-13] MEDS: THIAMINE HCL 100 MG TABLET (FP) PO SCH (22:16)
[2019-05-13] MEDS: MELATONIN 5 MG TABLETS PO SCH (22:16)
[2019-05-13] MEDS: ARIPiprazole 10 MG TABLET PO SCH (22:16)
[2019-05-13] MEDS: MONTELUKAST NA 10 MG TABLET PO SCH (22:16)
[2019-05-14] MEDS: GABAPENTIN 100 MG CAPSULE PO SCH ×3 (06:07→22:19)
[2019-05-14] MEDS: diazePAM 5 MG TABLET PO SCH ×2 (06:07→17:54)
[2019-05-14] MEDS: ACETAMINOPHEN 325 MG TABLET (FP) PO PRN ×3 (06:27→19:03)
[2019-05-14] MEDS: diazePAM 5 MG TABLET PO PRN ×2 (08:35→22:22)
[2019-05-14] MEDS: NICOTINE 21 MG/24 HOURS TOPICAL PATCH TD SCH (10:12)
[2019-05-14] MEDS: NAPROXEN 500 MG TABLET PO SCH ×2 (10:12→22:20)
[2019-05-14] MEDS: PRENATAL VITAMINS W/ FOLIC ACID TABLET (FP) PO SCH (10:12)
[2019-05-14] MEDS: BUDESONIDE/FORMETEROL FUMARATE 160/4.5 mcg INHALER IH SCH ×2 (10:13→22:19)
--- NOTE | 2019-05-14 12:40 | PN ---
[facility] CIWA - CIWA Score Nausea/Vomitin-Mild Nausea/No Vomiting Muscle Tremors: 1-None Visible, but [place] Anxiety: 2 Agitation: 0-Normal Activity Paroxysmal Sweats: 1-Minimal Palms Moist Orientation: 0-Oriented Tacttile Disturbances: 0-None Auditory Disturbances: 0-None Visual Disturbances: 0-None Headache: 0-None Present CIWA-Ar Total Score: 5 BHS Progress Note (SOAP) Subjective: 58 years old male admitted on 05/12/19 for alcohol withdrawal sx management treating with valium detox regiment sitting o the edge of the bed eating breakfast tolerate food well speech clearly coherently Objective: 05/14/19 12:41 Vital Signs Temperature 97.6 F 05/14/19 08:43 Pulse Rate 114 H 05/14/19 08:43 Respiratory Rate 16 05/14/19 08:43 Blood Pressure 132/90 05/14/19 08:43 O2 Sat by Pulse Oximetry (%) 100 05/14/19 06:26 05/14/19 12:41 lab pending Assessment: 05/14/19 12:41 alcohol withdrawal Plan: valium regiment
[2019-05-14] MEDS: METHOCARBAMOL 500 MG TABLET PO PRN ×2 (13:18→19:03)
[2019-05-14 18:16] LABS: HEMATOCRIT 30.8 % (35.4-49); HEMOGLOBIN 9.9 GM/dL (11.7-16.9); MCH 25.9 pg (25.7-33.7); MCHC 32.1 g/dl (32.0-35.9); MEAN CELL VOLUME 80.6 fl (80-96); MEAN PLT VOLUME 8.6 fl (7.5-11.1); PLATELET COUNT 231 K/MM3 (134-434); RBC 3.82 M/mm3 (4.00-5.60); RDW 18.1 % (11.9-15.9); WHITE BLOOD COUNT 7.5 K/mm3 (4.0-10.0)
[2019-05-14 18:28] LABS: ALBUMIN 2.7 g/dl (3.4-5.0); BILIRUBIN,TOTAL 0.4 mg/dL (0.2-1); BLOOD UREA NITROGEN 15.6 mg/dL (7-18); CALCIUM 8.2 mg/dL (8.5-10.1); CREATININE 0.8 mg/dL (0.55-1.3); POTASSIUM 4.2 mmol/L (3.5-5.1); TOT PROT 5.3 g/dl (6.4-8.2)
[2019-05-14] MEDS: ARIPiprazole 10 MG TABLET PO SCH (22:20)
[2019-05-14] MEDS: MELATONIN 5 MG TABLETS PO SCH (22:20)
[2019-05-14] MEDS: MONTELUKAST NA 10 MG TABLET PO SCH (22:20)
[2019-05-14] MEDS: THIAMINE HCL 100 MG TABLET (FP) PO SCH (22:20)
[2019-05-15] MEDS ORDERED: diazePAM 5 MG TABLET PO ONE (06:00)
[2019-05-15] MEDS: GABAPENTIN 100 MG CAPSULE PO SCH (06:17)
[2019-05-15] MEDS: ACETAMINOPHEN 325 MG TABLET (FP) PO PRN (06:18)
[2019-05-15] MEDS: METHOCARBAMOL 500 MG TABLET PO PRN (06:19)
[2019-05-15 06:33] VITALS: BP 145/82; PULSE 99; TEMP 97
--- NOTE | 2019-05-15 08:36 | PN ---
[facility] CIWA - CIWA Score Nausea/Vomitin-No Nausea/No Vomiting Muscle Tremors: 1-None Visible, but [place] Anxiety: 0-No Anxiety, at Ease Agitation: 0-Normal Activity Paroxysmal Sweats: No Perspiration Orientation: 0-Oriented Tacttile Disturbances: 0-None Auditory Disturbances: 0-None Visual Disturbances: 0-None Headache: 0-None Present CIWA-Ar Total Score: 1 S Progress Note (SOAP) Subjective: alert,no complaint Objective: 05/15/19 08:35 Vital Signs Temperature 97.0 F L 05/15/19 06:32 Pulse Rate 99 H 05/15/19 06:32 Respiratory Rate 18 05/15/19 06:32 Blood Pressure 145/82 05/15/19 06:32 O2 Sat by Pulse Oximetry (%) 96 05/15/19 06:32 Assessment: 05/15/19 08:35 detox completed 05/15/19 08:35 no withdrawal symptom Plan: discharge today,follow up with after care program as arrangement
--- NOTE | 2019-05-15 08:42 | DS ---
[facility] Detox Discharge Summary Admission Date: 05/13/19 Discharge Date: 05/15/19 - History Present History: Alcohol Dependence, Cocaine Dependence Additional Comments: alert,oriented x 3 ambulation on the unit no abdominal pain stable for discharge total time of discharge 30 mins follow up with after care program as arrangment and medical provider for medical problem Pertinent Past History: asthma gerd - Physical Exam Results Vital Signs: Vital Signs Temperature 97.0 F L 05/15/19 06:32 Pulse Rate 99 H 05/15/19 06:32 Respiratory Rate 18 05/15/19 06:32 Blood Pressure 145/82 05/15/19 06:32 O2 Sat by Pulse Oximetry (%) 96 05/15/19 06:32 Pertinent Admission Physical Exam Findings: withdrawal signs and symptom Laboratory Last Values WBC 7.5 K/mm3 (4.0-10.0) 05/14/19 07:20 RBC 3.82 M/mm3 (4.00-5.60) L 05/14/19 07:20 Hgb 9.9 GM/dL (11.7-16.9) L 05/14/19 07:20 Hct 30.8 % (35.4-49) L 05/14/19 07:20 MCV 80.6 fl (80-96) 05/14/19 07:20 MCH 25.9 pg (25.7-33.7) 05/14/19 07:20 MCHC 32.1 g/dl (32.0-35.9) 05/14/19 07:20 RDW 18.1 % (11.9-15.9) H 05/14/19 07:20 Plt Count 231 K/MM3 (134-434) 05/14/19 07:20 MPV 8.6 fl (7.5-11.1) 05/14/19 07:20 Sodium 143 mmol/L (136-145) 05/14/19 07:20 Potassium 4.2 mmol/L (3.5-5.1) 05/14/19 07:20 Chloride 110 mmol/L (98-107) H 05/14/19 07:20 Carbon Dioxide 26 mmol/L (21-32) 05/14/19 07:20 Anion Gap 6 MMOL/L (8-16) L 05/14/19 07:20 BUN 15.6 mg/dL (7-18) 05/14/19 07:20 Creatinine 0.8 mg/dL (0.55-1.3) 05/14/19 07:20 Est GFR (CKD-EPI)AfAm 114.13 05/14/19 07:20 Est GFR (CKD-EPI)NonAf 98.47 05/14/19 07:20 Random Glucose 85 mg/dL (74-106) 05/14/19 07:20 Calcium 8.2 mg/dL (8.5-10.1) L 05/14/19 07:20 Total Bilirubin 0.4 mg/dL (0.2-1) 05/14/19 07:20 AST 26 U/L (15-37) 05/14/19 07:20 ALT 33 U/L (13-61) 05/14/19 07:20 Alkaline Phosphatase 76 U/L (45-117) 05/14/19 07:20 Total Protein 5.3 g/dl (6.4-8.2) L 05/14/19 07:20 Albumin 2.7 g/dl (3.4-5.0) L 05/14/19 07:20 RPR Titer Nonreactive (NONREACTIVE) 05/14/19 07:20 Vital Signs Temperature 97.0 F L 05/15/19 06:32 Pulse Rate 99 H 05/15/19 06:32 Respiratory Rate 18 05/15/19 06:32 Blood Pressure 145/82 05/15/19 06:32 O2 Sat by Pulse Oximetry (%) 96 05/15/19 06:32 - Treatment Hospital Course: Detox Protocol Followed, Detoxed Safely, Responded well, Discharged Condition Good Patient has Accepted a Rehab Referral to: declined - Medication Discharge Medications: Ambulatory Orders Naproxen [Naprosyn -] 500 mg PO BID 10/31/18 Montelukast Na [Singulair -] 10 mg PO HS 12/11/18 Gabapentin 400 mg PO TID 12/12/18 Budesonide/Formeterol Fumarate [SYMBICORT 160/4.5mcg -] 1 inh PO BID #1 inhaler 12/14/18 Aripiprazole [Abilify] 15 mg PO DAILY 05/12/19 EPINEPHrine (EPI-PEN 0.3MG) 0.3 mg IM PRN PRN 05/12/19 Mometasone/Formoterol [Dulera 100 Mcg/5 Mcg Inhaler] 2 puff IH Q4H PRN 05/12/19 - Diagnosis (1) Alcohol dependence with uncomplicated withdrawal Current Visit: Yes Status: Acute (2) Cocaine dependence, episodic Current Visit: No Status: Acute (3) Asthma Current Visit: No Status: Chronic Qualifiers: Asthma severity: mild Asthma persistence: intermittent Asthma complication type: with status asthmaticus Qualified Code(s): J45.22 - Mild intermittent asthma with status asthmaticus (4) GERD (gastroesophageal reflux disease) Current Visit: No Status: Chronic Qualifiers: Esophagitis presence: without esophagitis Qualified Code(s): K21.9 - Gastro-esophageal reflux disease without esophagitis (5) Nicotine abuse Current Visit: No Status: Chronic - AMA Did Patient Leave Against Medical Advice: No
--- NOTE | 2019-05-15 10:31 | EKG ---
Test Reason : Blood Pressure : / mmHG Vent. Rate : 090 BPM Atrial Rate : 090 BPM P-R Int : 134 ms QRS Dur : 076 ms QT Int : 358 ms P-R-T Axes : 064 005 015 degrees QTc Int : 437 ms NORMAL SINUS RHYTHM NORMAL ECG WHEN COMPARED WITH ECG OF 11-DEC-2018 20:27, NO SIGNIFICANT CHANGE WAS FOUND Confirmed by Moises Hewitt ([id number]) on 05/15/2019 10:31:04 AM Referred By: HARVEY Confirmed By:Moises Hewitt
== END 2019-05-15 08:32 | disposition home or self-care (01) | DRG 774 ==
LOC: YASAS 18:08 → Y3N 05-13 02:31
PROVIDERS: ADMIT Allergy & Immunology; ATTEND Allergy & Immunology
PROC: HZ2ZZZZ Detoxification Services for Substance Abuse Treatment (ICD-10-PCS; principal; 2019-05-13)
DX: F10.230 Alcohol dependence with withdrawal, uncomplicated (principal); F14.20 Cocaine dependence, uncomplicated; F17.210 Nicotine dependence, cigarettes, uncomplicated; F10.282 Alcohol dependence with alcohol-induced sleep disorder; F19.24 Other psychoactive substance dependence with psychoactive substance-induced mood disorder; F43.10 Post-traumatic stress disorder, unspecified; F41.9 Anxiety disorder, unspecified; K21.9 Gastro-esophageal reflux disease without esophagitis; M54.5 Low back pain; G89.29 Other chronic pain; Z86.711 Personal history of pulmonary embolism; Z88.8 Allergy status to other drugs, medicaments and biological substances; Z91.018 Allergy to other foods; Z56.0 Unemployment, unspecified
CPT/HCPCS: 36415; 80053; 85027; 86593; 93005; 93010; Q0162

== ENCOUNTER 2019-08-31 14:11 | Inpatient (IN) | payer OTHER ==
--- NOTE | 2019-08-31 14:35 | BHS.RME ---
Substance Use & Tx History - Substance Use History Alcohol Substance amount: 1-1.5 laureano or cognac Frequency of use: Daily Substance route: Oral Date of Last Use: 08/31/19 Cocaine- Powder Substance amount: $200 Frequency of use: Once a month Substance route: Inhalation (ex: sniffing or snorting) Date of Last Use: 08/26/19 Nicotine Substance amount: 1 pack Frequency of use: Daily Substance route: Smoking Date of Last Use: 08/31/19 Physical/Psych/Mental Status - Behavior General Behavior: Increased activity (restlessness, agitation) Eye Contact: Normal - Cooperativeness Cooperativeness: Cooperative - Thinking Thought Processes: Tight, Logical, Goal Directed - Physical Health Problems Is patient presently having any pain?: No Does patient presently have any injuries (include location): No Does patient currently have a fever: No Is patient : No CIWA Nausea/Vomitin-Mild Nausea/No Vomiting Muscle Tremors: 3 Anxiety: 3 Agitation: 3 Paroxysmal Sweats: 2 Orientation: 1-Uncertain about Date Tacttile Disturbances: 0-None Auditory Disturbances: 0-None Visual Disturbances: 0-None Headache: 0-None Present CIWA-Ar Total Score: 13
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
[2019-08-31] MEDS ORDERED: MAG HYDROX/AL HYDROX/SIMETH 30 ML UNIT-DOSE CUP PO PRN (17:50)
[2019-08-31] MEDS ORDERED: ACETAMINOPHEN 325 MG TABLET (FP) PO PRN (17:50)
[2019-08-31] MEDS ORDERED: NICOTINE POLACRILEX 2 MG GUM BUC PRN (17:50)
[2019-08-31] MEDS ORDERED: MENTHOL/PHENOL 1 EACH UD MM PRN (17:50)
[2019-08-31] MEDS ORDERED: BISMUTH SUBSALICYLATE 524 MG/30 ML UD PO PRN (17:50)
[2019-08-31] MEDS ORDERED: diazePAM 5 MG TABLET PO PRN (17:50)
[2019-08-31] MEDS ORDERED: MAGNESIUM HYDROX 2400MG/30ML ORAL SUSPENSION 30 ML CUP PO PRN (17:50)
[2019-08-31] MEDS ORDERED: MAGNESIUM CITRATE 300 ML BOTTLE PO PRN (17:50)
[2019-08-31] MEDS ORDERED: ONDANSETRON *ODT* 4 MG TABLET SL ONE (17:50)
[2019-08-31 19:11] VITALS: BMI 23.6
[2019-08-31] MEDS: IBUPROFEN 400 MG TABLET (FP) PO PRN (23:08)
[2019-08-31] MEDS: diazePAM 5 MG TABLET PO SCH (23:08)
[2019-08-31] MEDS: METHOCARBAMOL 500 MG TABLET PO PRN (23:08)
[2019-08-31] MEDS: hydrOXYzine PAMOATE 25 MG CAPSULE (FP) PO PRN (23:09)
[2019-08-31] MEDS: MELATONIN 5 MG TABLETS PO SCH (23:09)
[2019-08-31] MEDS: THIAMINE HCL 100 MG TABLET (FP) PO SCH (23:10)
[2019-09-01] MEDS: diazePAM 5 MG TABLET PO SCH ×3 (06:28→21:18)
[2019-09-01] MEDS: METHOCARBAMOL 500 MG TABLET PO PRN ×2 (06:28→21:19)
[2019-09-01] MEDS: ACETAMINOPHEN 325 MG TABLET (FP) PO PRN ×2 (06:28→17:08)
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
[2019-09-01] MEDS: PRENATAL VITAMINS W/ FOLIC ACID TABLET (FP) PO SCH (10:32)
[2019-09-01] MEDS: NICOTINE 14 MG/24 HOURS TOPICAL PATCH TD SCH (10:32)
[2019-09-01] MEDS: IBUPROFEN 400 MG TABLET (FP) PO PRN (10:33)
[2019-09-01 11:12] LABS: HEMATOCRIT 34.6 % (35.4-49); HEMOGLOBIN 10.5 GM/dL (11.7-16.9); MCH 24.6 pg (25.7-33.7); MCHC 30.4 g/dl (32.0-35.9); MEAN CELL VOLUME 80.8 fl (80-96); MEAN PLT VOLUME 8.9 fl (7.5-11.1); PLATELET COUNT 250 K/MM3 (134-434); RBC 4.28 M/mm3 (4.00-5.60); RDW 18.6 % (11.9-15.9); WHITE BLOOD COUNT 7.5 K/mm3 (4.0-10.0)
[2019-09-01] MEDS: ARIPiprazole 15 MG TABLET PO SCH (11:21)
[2019-09-01 11:38] LABS: ALBUMIN 3.2 g/dl (3.4-5.0); BILIRUBIN,TOTAL 0.3 mg/dL (0.2-1); BLOOD UREA NITROGEN 17.9 mg/dL (7-18); CALCIUM 8.8 mg/dL (8.5-10.1); CREATININE 1.1 mg/dL (0.55-1.3); TOT PROT 6.2 g/dl (6.4-8.2)
--- NOTE | 2019-09-01 13:22 | EKG ---
Test Reason : Blood Pressure : / mmHG Vent. Rate : 075 BPM Atrial Rate : 075 BPM P-R Int : 138 ms QRS Dur : 080 ms QT Int : 386 ms P-R-T Axes : 061 -02 007 degrees QTc Int : 431 ms NORMAL SINUS RHYTHM NORMAL ECG WHEN COMPARED WITH ECG OF 13-MAY-2019 00:47, NO SIGNIFICANT CHANGE WAS FOUND Confirmed by GEORGE KINCAID MD ([id number]) on 09/01/2019 1:21:49 PM Referred By: Confirmed By:GEORGE KINCAID MD
[2019-09-01] MEDS: GABAPENTIN 300 MG CAPSULE PO SCH ×2 (13:25→21:18)
[2019-09-01] MEDS ORDERED: PATIENT'S OWN MEDICATION (NON-FORMULARY) (Gabapentin [Gabapentin] 600 MG) PO SCH (14:00)
--- NOTE | 2019-09-01 14:30 | PN ---
S CIWA - CIWA Score Nausea/Vomitin-No Nausea/No Vomiting Muscle Tremors: 3 Anxiety: 4-Mod. Anxious/Guarded Agitation: 3 Paroxysmal Sweats: 1-Minimal Palms Moist Orientation: 0-Oriented Tacttile Disturbances: 0-None Auditory Disturbances: 0-None Visual Disturbances: 0-None Headache: 0-None Present CIWA-Ar Total Score: 11 BHS Progress Note (SOAP) Subjective: pt is a 58 y/o male admitted to detox for alcohol withdrawal sx. c/o anxiety diarrhea lower back(hx Herniated disc; sciatica) requesting increased tylenol Objective: 09/01/19 14:25 Vital Signs - 24 hr 08/31/19 08/31/19 09/01/19 19:06 20:05 06:54 Temperature 98.2 F 97.1 F L 97.7 F Pulse Rate 112 H 74 Respiratory 12 18 Rate Blood Pressure 118/68 134/90 O2 Sat by Pulse 96 Oximetry (%) 09/01/19 09/01/19 06:59 09:41 Temperature 97.7 F 96.9 F L Pulse Rate 76 79 Respiratory 18 16 Rate Blood Pressure 96/54 L 99/65 O2 Sat by Pulse 96 Oximetry (%) Laboratory Tests 09/01/19 09/01/19 09/01/19 07:05 07:05 07:05 WBC 7.5 RBC 4.28 Hgb 10.5 L Hct 34.6 L MCV 80.8 MCH 24.6 L MCHC 30.4 L RDW 18.6 H Plt Count 250 MPV 8.9 Sodium 142 Potassium 4.0 Chloride 105 Carbon Dioxide 29 Anion Gap 8 BUN 17.9 Creatinine 1.1 Est GFR (CKD-EPI)AfAm 85.31 Est GFR (CKD-EPI)NonAf 73.61 Random Glucose 80 Calcium 8.8 Total Bilirubin 0.3 AST 33 ALT 61 Alkaline Phosphatase 90 Total Protein 6.2 L Albumin 3.2 L Syphilis Serology Non-reactive covid- 19 results pending alert o x 3 nad oob ambulating with steady gait Assessment: 09/01/19 14:26 withdrawal sx Plan: cont detox increase po fluids maintain safety imodium prn for diarrhea
[2019-09-01] MEDS: FERROUS SO4 325 MG TABLET (FP) PO SCH (17:42)
[2019-09-01] MEDS: THIAMINE HCL 100 MG TABLET (FP) PO SCH (21:18)
[2019-09-01] MEDS: hydrOXYzine PAMOATE 25 MG CAPSULE (FP) PO PRN (21:18)
[2019-09-01] MEDS: MELATONIN 5 MG TABLETS PO SCH (21:20)
[2019-09-01] MEDS: NORTRIPTYLINE HCL 25 MG CAPSULE PO SCH (21:21)
[2019-09-01] MEDS ORDERED: NORTRIPTYLINE HCL 50 MG CAPSULE PO SCH (22:00)
[2019-09-02] MEDS: METHOCARBAMOL 500 MG TABLET PO PRN ×3 (06:33→22:22)
[2019-09-02] MEDS: ACETAMINOPHEN 325 MG TABLET (FP) PO PRN ×2 (06:34→13:35)
[2019-09-02] MEDS: diazePAM 5 MG TABLET PO SCH ×2 (06:35→17:48)
[2019-09-02] MEDS: GABAPENTIN 300 MG CAPSULE PO SCH ×3 (06:35→22:19)
[2019-09-02] MEDS: FERROUS SO4 325 MG TABLET (FP) PO SCH ×3 (08:01→17:47)
[2019-09-02] MEDS: ARIPiprazole 15 MG TABLET PO SCH (10:29)
[2019-09-02] MEDS: PRENATAL VITAMINS W/ FOLIC ACID TABLET (FP) PO SCH (10:30)
[2019-09-02] MEDS: NICOTINE 14 MG/24 HOURS TOPICAL PATCH TD SCH (10:30)
--- NOTE | 2019-09-02 11:14 | PN ---
S CIWA - CIWA Score Nausea/Vomitin-No Nausea/No Vomiting Muscle Tremors: None Anxiety: 2 Agitation: 0-Normal Activity Paroxysmal Sweats: 2 Orientation: 0-Oriented Tacttile Disturbances: 0-None Auditory Disturbances: 0-None Visual Disturbances: 0-None Headache: 1-Very Mild CIWA-Ar Total Score: 5 BHS Progress Note (SOAP) Subjective: c/o mild withdrawal symptoms. Objective: 09/02/19 11:13 Vital Signs 09/02/19 09/02/19 09/02/19 07:00 07:39 08:54 Temperature 98.3 F 98.6 F Pulse Rate 110 H 89 98 H Respiratory 18 16 Rate Blood Pressure 151/106 H 115/77 95/60 O2 Sat by Pulse 92 L Oximetry (%) Laboratory Last Values WBC 7.5 K/mm3 (4.0-10.0) 09/01/19 07:05 RBC 4.28 M/mm3 (4.00-5.60) 09/01/19 07:05 Hgb 10.5 GM/dL (11.7-16.9) L 09/01/19 07:05 Hct 34.6 % (35.4-49) L 09/01/19 07:05 MCV 80.8 fl (80-96) 09/01/19 07:05 MCH 24.6 pg (25.7-33.7) L 09/01/19 07:05 MCHC 30.4 g/dl (32.0-35.9) L 09/01/19 07:05 RDW 18.6 % (11.9-15.9) H 09/01/19 07:05 Plt Count 250 K/MM3 (134-434) 09/01/19 07:05 MPV 8.9 fl (7.5-11.1) 09/01/19 07:05 Sodium 142 mmol/L (136-145) 09/01/19 07:05 Potassium 4.0 mmol/L (3.5-5.1) 09/01/19 07:05 Chloride 105 mmol/L (98-107) 09/01/19 07:05 Carbon Dioxide 29 mmol/L (21-32) 09/01/19 07:05 Anion Gap 8 MMOL/L (8-16) 09/01/19 07:05 BUN 17.9 mg/dL (7-18) 09/01/19 07:05 Creatinine 1.1 mg/dL (0.55-1.3) 09/01/19 07:05 Est GFR (CKD-EPI)AfAm 85.31 09/01/19 07:05 Est GFR (CKD-EPI)NonAf 73.61 09/01/19 07:05 Random Glucose 80 mg/dL (74-106) 09/01/19 07:05 Calcium 8.8 mg/dL (8.5-10.1) 09/01/19 07:05 Total Bilirubin 0.3 mg/dL (0.2-1) 09/01/19 07:05 AST 33 U/L (15-37) 09/01/19 07:05 ALT 61 U/L (13-61) 09/01/19 07:05 Alkaline Phosphatase 90 U/L (45-117) 09/01/19 07:05 Total Protein 6.2 g/dl (6.4-8.2) L 09/01/19 07:05 Albumin 3.2 g/dl (3.4-5.0) L 09/01/19 07:05 Syphilis Serology Non-reactive (NONREACTIVE) 09/01/19 07:05 Labs noted. Assessment: 09/02/19 11:13 AOx 3, in no acute respiratory distress. Full ROM, ambulating in the unit. Mild Withdrawal symptoms. For d/c tomorrow. Plan: continue detox. D/C in AM.
[2019-09-02] MEDS: hydrOXYzine PAMOATE 25 MG CAPSULE (FP) PO PRN ×3 (15:59→22:19)
[2019-09-02] MEDS: THIAMINE HCL 100 MG TABLET (FP) PO SCH (22:19)
[2019-09-02] MEDS: MELATONIN 5 MG TABLETS PO SCH (22:19)
[2019-09-02] MEDS: NORTRIPTYLINE HCL 25 MG CAPSULE PO SCH (22:20)
[2019-09-03] MEDS ORDERED: diazePAM 5 MG TABLET PO ONE (06:00)
[2019-09-03] MEDS: GABAPENTIN 300 MG CAPSULE PO SCH (06:05)
[2019-09-03] MEDS: hydrOXYzine PAMOATE 25 MG CAPSULE (FP) PO PRN (06:06)
[2019-09-03] MEDS: METHOCARBAMOL 500 MG TABLET PO PRN (06:06)
[2019-09-03] MEDS: ACETAMINOPHEN 325 MG TABLET (FP) PO PRN (06:07)
[2019-09-03 07:02] VITALS: BP 122/93; PULSE 126; TEMP 98.3
[2019-09-03] MEDS: FERROUS SO4 325 MG TABLET (FP) PO SCH (07:20)
--- NOTE | 2019-09-03 09:37 | PN ---
[facility] Progress Note Note: Patient is scheduled for discharge today. Scripts for 30 days supply of medications(Abilify 15 mg/day, Gabapentin 600 mg/tid, Nortriptyline 150 mg/hs) are electronically transmitted to [facility], [address] [place] [id number]
--- NOTE | 2019-09-03 09:40 | DS ---
[facility] Detox Discharge Summary Admission Date: 08/31/19 Discharge Date: 09/03/19 - History Present History: Alcohol Dependence Additional Comments: 58 years old male admitted on 08/31/19 for alcohol withdrawal sx management treated with valium detox regiment seen by psychiatrist maik escalera babapentin and nortriptyl mr murdock has completed the valium regiment and is tolerated well alert oriented x 3 speech clearly coherently ambulating steady gaits cardiac [id number] regular rate rhythm respiratory clear lung sounds bilaterally on auscultation abdomen soft flat no rebound tenderness Pertinent Past History: time for discharge 35 minutes strong recommend mr murdock to attend community self help groups and meetings - Physical Exam Results Vital Signs: Vital Signs Temperature 98.3 F 09/03/19 07:00 Pulse Rate 126 H 09/03/19 07:00 Respiratory Rate 18 09/03/19 07:00 Blood Pressure 122/93 09/03/19 07:00 O2 Sat by Pulse Oximetry (%) 91 L 09/03/19 07:00 Pertinent Admission Physical Exam Findings: alcohol withdrawal Laboratory Tests 08/31/19 09/01/19 09/01/19 19:07 07:05 07:05 WBC 7.5 RBC 4.28 Hgb 10.5 L Hct 34.6 L MCV 80.8 MCH 24.6 L MCHC 30.4 L RDW 18.6 H Plt Count 250 MPV 8.9 Sodium Potassium Chloride Carbon Dioxide Anion Gap BUN Creatinine Est GFR (CKD-EPI)AfAm Est GFR (CKD-EPI)NonAf Random Glucose Calcium Total Bilirubin AST ALT Alkaline Phosphatase Total Protein Albumin Syphilis Serology Non-reactive COVID-19 ([facility]) Not detected 09/01/19 07:05 WBC RBC Hgb Hct MCV MCH MCHC RDW Plt Count MPV Sodium 142 Potassium 4.0 Chloride 105 Carbon Dioxide 29 Anion Gap 8 BUN 17.9 Creatinine 1.1 Est GFR (CKD-EPI)AfAm 85.31 Est GFR (CKD-EPI)NonAf 73.61 Random Glucose 80 Calcium 8.8 Total Bilirubin 0.3 AST 33 ALT 61 Alkaline Phosphatase 90 Total Protein 6.2 L Albumin 3.2 L Syphilis Serology COVID-19 ([facility]) lab noted Vital Signs - 24 hr 09/02/19 09/02/19 09/02/19 12:39 16:47 21:12 Temperature 98.7 F 97.7 F 97.3 F L Pulse Rate 102 H 80 97 H Respiratory 16 16 16 Rate Blood Pressure 107/69 110/64 133/79 O2 Sat by Pulse 97 95 95 Oximetry (%) 09/03/19 07:00 Temperature 98.3 F Pulse Rate 126 H Respiratory 18 Rate Blood Pressure 122/93 O2 Sat by Pulse 91 L Oximetry (%) o2 Sat recheck 97% pulse rate recheck 97 anxious about leaving detox that mr murdock is going to follow up with his primary care provider (psychiatrist) - Treatment Hospital Course: Detox Protocol Followed, Detoxed Safely, Responded well, Discharged Condition Good, Rehab Referral Accepted Patient has Accepted a Rehab Referral to: community support [facility] - Medication Discharge Medications: Ambulatory Orders EPINEPHrine (EPI-PEN 0.3MG) 0.3 mg IM PRN PRN 05/12/19 Acetaminophen 500 mg PO PRN 08/31/19 Aripiprazole [Abilify -] 15 mg PO DAILY 08/31/19 Gabapentin 600 mg PO TID 08/31/19 Methocarbamol 500 mg PO TID 08/31/19 Nortriptyline HCl [Pamelor] 150 mg PO HS 08/31/19 Tramadol HCl [Conzip] 200 mg PO DAILY 08/31/19 Aripiprazole [Abilify -] 15 mg PO DAILY #30 tablet 09/03/19 Gabapentin [Gralise] 600 mg PO TID #90 tab.er.24h 09/03/19 Nortriptyline HCl 150 mg PO HS #60 capsule 09/03/19 - Diagnosis (1) Alcohol dependence with uncomplicated withdrawal Current Visit: Yes Status: Acute (2) Asthma Current Visit: Yes Status: Chronic Qualifiers: Asthma severity: mild Asthma persistence: intermittent Asthma complication type: with status asthmaticus Qualified Code(s): J45.22 - Mild intermittent asthma with status asthmaticus (3) COPD (chronic obstructive pulmonary disease) Current Visit: Yes Status: Chronic Qualifiers: COPD type: emphysema Emphysema type: unspecified Qualified Code(s): J43.9 - Emphysema, unspecified (4) GERD (gastroesophageal reflux disease) Current Visit: Yes Status: Chronic Qualifiers: Esophagitis presence: without esophagitis Qualified Code(s): K21.9 - Gastro-esophageal reflux disease without esophagitis (5) Nicotine dependence Current Visit: Yes Status: Acute Qualifiers: Nicotine product type: cigarettes Substance use status: in withdrawal Qualified Code(s): F17.213 - Nicotine dependence, cigarettes, with withdrawal (6) Substance induced mood disorder Current Visit: Yes Status: Suspected - AMA Did Patient Leave Against Medical Advice: No CIWA Score - CIWA Score Nausea/Vomitin-No Nausea/No Vomiting Muscle Tremors: None Anxiety: 1-Mildly Anxious Agitation: 0-Normal Activity Paroxysmal Sweats: 1-Minimal Palms Moist Orientation: 0-Oriented Tacttile Disturbances: 0-None Auditory Disturbances: 0-None Visual Disturbances: 0-None Headache: 0-None Present CIWA-Ar Total Score: 2
== END 2019-09-03 08:58 | disposition home or self-care (01) | DRG 774 ==
LOC: YASAS 14:11 → Y5N DETOX 18:36
PROVIDERS: ADMIT Allergy & Immunology; ATTEND Allergy & Immunology
PROC: HZ2ZZZZ Detoxification Services for Substance Abuse Treatment (ICD-10-PCS; principal; 2019-08-31)
DX: F10.230 Alcohol dependence with withdrawal, uncomplicated (principal); F14.10 Cocaine abuse, uncomplicated; F17.210 Nicotine dependence, cigarettes, uncomplicated; F19.282 Other psychoactive substance dependence with psychoactive substance-induced sleep disorder; F19.24 Other psychoactive substance dependence with psychoactive substance-induced mood disorder; F43.10 Post-traumatic stress disorder, unspecified; F41.8 Other specified anxiety disorders; F32.9 Major depressive disorder, single episode, unspecified; J43.9 Emphysema, unspecified; J45.22 Mild intermittent asthma with status asthmaticus; K21.9 Gastro-esophageal reflux disease without esophagitis; M54.30 Sciatica, unspecified side; M54.5 Low back pain; Z86.711 Personal history of pulmonary embolism; Z98.890 Other specified postprocedural states; Z91.010 Allergy to peanuts; Z88.8 Allergy status to other drugs, medicaments and biological substances; Z56.0 Unemployment, unspecified
CPT/HCPCS: 36415; 80053; 85027; 86780; 93005; 93010; Q0162; U0003